=== PATIENT | male | born 1980 | race African-American/Black ===

== ENCOUNTER 2018-03-21 11:08 | Emergency (ER) | payer MEDICAID ==
[2018-03-21] MEDS ORDERED: Proparacaine 0.5% Opth 15 ML BOT ONE (11:28)
[2018-03-21] MEDS ORDERED: Fluorescein Opthalmic Strip ONE (11:28)
== END 2018-03-21 11:47 | disposition home or self-care (01) ==
LOC: ERS 11:08
DX: H10.9 Unspecified conjunctivitis (principal); I10 Essential (primary) hypertension
CPT/HCPCS: 99283

== ENCOUNTER 2018-09-24 10:12 | Inpatient (IN) | payer MEDICAID, OTHER ==
[2018-09-24] MEDS ORDERED: Heparin 1,000 UNITS/ML VIAL ONE (11:11)
[2018-09-24 11:12] LABS: #Lymphocytes 0.1 thou/uL (1.20-3.40); #Monocytes 0.1 thou/uL (0.11-0.59); #Neutrophils 2.8 thou/uL (1.40-6.50); %Eosinophils 1.1 % (0.0-10.0); %Lymphocytes 4.6 % (21.0-51.0); %Monocytes 4.1 % (0.0-10.0); %Neutrophils 90.3 % (42.0-75.0); Hemoglobin 11.2 g/dL (14.0-18.0); MDiff Complete? YES; Mean Corpuscular HGB CONC 35.6 g/dL (32.0-36.0); Mean Corpuscular Hemoglobin 34.8 pg (27.0-31.0); Mean Corpuscular Volume 97.7 fL (78.0-98.0); Mean Platelet Volume 9.1 fL (7.4-10.4); Platelet Count 105 thou/uL (130-400); Platelet Morphology Comment Appears Decreased; Polychromasia SLIGHT = 2-3 cells (100X) (0-2/hpf); RBC Distribution Width 14.1 % (11.5-14.5); Red Blood Cell (RBC) Count 3.23 mill/uL (4.70-6.10); White Blood Cell (WBC) Count 3.1 thou/uL (4.8-10.8)
[2018-09-24 11:27] LABS: ALT (SGPT) 22 U/L (8-55); AST (SGOT) 21 U/L (5-34); Albumin 4.2 g/dL (3.5-5.0); Alkaline Phosphatase 107 U/L (40-150); Anion Gap 30 mmol/L (10-20); Bilirubin, Total 0.5 mg/dL (0.2-1.2); Calc. Creatinine Clearance 0 mL/min (70-130); Calcium 7.1 mg/dL (7.8-10.44); Carbon Dioxide 17 mmol/L (22-29); Chloride 95 mmol/L (98-107); Estimated GFR-MDRD 3; Globulin 4.3 g/dL (2.4-3.5); Glucose 88 mg/dL (70-105); Protein, Total 8.5 g/dL (6.0-8.3); Sodium 135 mmol/L (136-145)
--- NOTE | 2018-09-24 11:35 | RAD ---
EXAM: XR Chest 1 View Portable PROVIDED CLINICAL HISTORY: Patient missed hemodialysis. Diabetes mellitus. COMPARISON: 07/30/2012 FINDINGS: The tunneled right internal jugular vein hemodialysis catheter has been removed. A vascular stent ove rlies the left subclavian and axillary vessels. Cardiac silhouette is magnified by projection. The pu lmonary vasculature is within normal limits. A remote fracture is seen involving the anterior left si xth rib. Vascular calcifications are seen in the thoracic aorta. Surgical clips are seen in the right axillary region with calcifications also seen in the right axillary region probably due to vascular type calcifications. IMPRESSION: No acute cardiopulmonary process.
[2018-09-24 11:39] LABS: BUN (Urea Nitrogen) 116 mg/dL (8.9-20.6)
[2018-09-24] MEDS ORDERED: Heparin 10,000 UNITS/ 10 ML VIAL ONE (12:00)
[2018-09-24] MEDS ORDERED: Ondansetron PF 4 MG/2 ML Vial IVP PRN (15:28)
[2018-09-24] MEDS ORDERED: Ondansetron ODT 4 MG TAB SL PRN (15:28)
[2018-09-24] MEDS ORDERED: Acetaminophen 325 MG TAB PO PRN (15:28)
[2018-09-24 16:35] LABS: #Lymphocytes 0.1 thou/uL (1.20-3.40); #Monocytes 0.1 thou/uL (0.11-0.59); #Neutrophils 2.1 thou/uL (1.40-6.50); %Eosinophils 1.8 % (0.0-10.0); %Lymphocytes 5.2 % (21.0-51.0); Hemoglobin 9.4 g/dL (14.0-18.0); Mean Corpuscular HGB CONC 35.5 g/dL (32.0-36.0); Mean Corpuscular Hemoglobin 34.2 pg (27.0-31.0); Mean Corpuscular Volume 96.1 fL (78.0-98.0); Platelet Count 104 thou/uL (130-400); Red Blood Cell (RBC) Count 2.74 mill/uL (4.70-6.10); White Blood Cell (WBC) Count 2.4 thou/uL (4.8-10.8)
--- NOTE | 2018-09-24 16:38 | CON ---
DATE OF CONSULTATION: HISTORY OF PRESENT ILLNESS: Mr. Adamson is a 38-year-old black male with known history of ESRD and admitted due to a nonfunctional AV fistula. Attempt to open this at [facility] was not successful. He was sent to the ER for further evaluation. He was noted to be hyperkalemic with a potassium of 7. Surgical consult with Dr. Rees was done and a temporary femoral dialysis catheter was placed. He is currently undergoing emergent hemodialysis. I am at the bedside supervising his dialysis. REVIEW OF SYSTEMS: No fever or chills. No diplopia. No abdominal pain. No gross hematuria. No dysuria. No urinary frequency. No headache. No syncopal episode. No shortness of breath. No chest pain. No hallucination. No hematochezia. PAST MEDICAL HISTORY: 1. ESRD from hypertensive nephropathy. 2. Longstanding hypertension, status post acute respiratory failure, status post pneumothorax - iatrogenic, status post bleeding AV fistula. PAST SURGICAL HISTORY: Status post intubation, status post AV fistula placement, status post revision of AV fistula, and status post cuffed dialysis catheter placement. SOCIAL HISTORY: The patient lives with his mother. Lives in [place]. Retired [employer]. Education, high school. Status post blood transfusion. Status post incarceration. No IV drug use. Active lifestyle. FAMILY HISTORY: Positive family history of ESRD. ALLERGIES: NONE. TRAUMA: None. IMMUNIZATIONS: Up-to-date. HOSPITALIZATIONS: Please see past medical history. PHYSICAL EXAMINATION: VITAL SIGNS: Blood pressure is noted at 177/79, heart rate 72, respiratory rate 17, and O2 sat 97%. GENERAL: Noted to be awake, alert, comfortable, not in distress. SKIN: Adequate turgor. HEENT: He has a pinkish conjunctivae. Anicteric sclerae. NECK: No neck mass. No carotid bruits. No JVD. CHEST: No deformities. LUNGS: Clear breath sounds. No wheezing. No crackles. HEART: Normal sinus rhythm. No murmurs. No gallops. No rubs. ABDOMEN: Globular, soft, and nontender. No masses. EXTREMITIES: No edema. No deformities. NEUROLOGICAL: Awake and oriented to 3 spheres. Moving all extremities. No tremors. No asterixis. No ataxia. LABORATORY DATA: Laboratories of September 24, 2018: White count 3.1, hemoglobin 11.2. Sodium 135, potassium 7, chloride 95, carbon dioxide 17, BUN 116, creatinine 23.29, calcium 7.1, AST 21, ALT 22, and albumin 4.2. ASSESSMENT AND PLAN: 1. Hyperkalemia, emergent hemodialysis. He will use a 2.0 potassium bath. We will dialyze this patient for a total of 4 hours. 2. End-stage renal disease, stable. We will continue current hemodialysis regimen on Saturday, Saturday, and Saturday. Currently, Surgery has been consulted for possible revision of his arteriovenous fistula. He may eventually need some cuffed hemodialysis catheter placement. 3. Hypertension. Continue current BP medications. His medications currently include hydralazine 100 mg tab t.i.d., clonidine patch TTS/2 weekly, and losartan 25 mg tab once a day. Agree with current management. We will recheck basic metabolic panel and CBC in a.m. Job ID: [id number]
[2018-09-24 16:51] LABS: Anion Gap 23 mmol/L (10-20); BUN (Urea Nitrogen) 100 mg/dL (8.9-20.6); Calc. Creatinine Clearance 0 mL/min (70-130); Calcium 7.5 mg/dL (7.8-10.44); Carbon Dioxide 21 mmol/L (22-29); Chloride 97 mmol/L (98-107); Estimated GFR-MDRD 4; Glucose 93 mg/dL (70-105); Potassium 5.5 mmol/L (3.5-5.1); Sodium 135 mmol/L (136-145)
--- NOTE | 2018-09-24 18:00 | HP ---
CHIEF COMPLAINT: Missed dialysis due to dialysis fistula malfunction. HISTORY OF PRESENT ILLNESS: Mr. Adamson is a pleasant 38-year-old man with a history of end-stage renal disease, on hemodialysis and history of diabetes mellitus, who presented to the ER yesterday after attempting to undergo dialysis due to malfunction of his dialysis fistula. His last dialysis was on Saturday last week. He was seen by Dr. Bentley, who was unable to unblock his fistula in the office yesterday and therefore advised him to come to the ED. The patient denies having any chest pain, palpitations, or shortness of breath. No lower extremity edema. Denies any abdominal pain or cramping. Has not had any nausea or vomiting. No headaches. He is currently undergoing dialysis at this moment. States he feels well and is resting comfortably without any complaints of pain. REVIEW OF SYSTEMS: Denies having any fevers, chills, or sweats. All other review of systems apart from those mentioned above in HPI are negative. PAST MEDICAL HISTORY: 1. Hypertension. 2. Diabetes mellitus. 3. End-stage renal disease, on dialysis Saturday, Saturday, Saturday. 4. Previous respiratory failure, status post pneumothorax, iatrogenic. 5. Previous issues with bleeding AV fistula. PAST SURGICAL HISTORY: 1. AV fistula placement. 2. Status post revision of AV fistula. 3. Status post cuffed dialysis catheter placement. SOCIAL HISTORY: He reports smoking a quarter of a pack per day since age 36. Denies any alcohol use or illicit drug use. He lives at home with his mother and aunt. ALLERGIES: NO KNOWN DRUG ALLERGIES. CURRENT MEDICATIONS: 1. Hydralazine. 2. Clonidine. 3. Losartan. PHYSICAL EXAMINATION: GENERAL: The patient appears well developed, well nourished, is in no acute distress. VITAL SIGNS: Temperature 99.4, pulse 64, blood pressure 178/105, respirations 17, O2 saturation 100% on room air. HEENT: Normocephalic, atraumatic. Pupils are equal, round, and reactive to light. Sclerae are without icterus. Oropharynx is clear. NECK: Supple without lymphadenopathy. LUNGS: Clear to auscultation bilaterally without wheezes, rales, or rhonchi. CARDIAC: Regular rate and rhythm without audible murmurs, rubs, or gallops. ABDOMEN: Soft, nontender, nondistended. Normoactive bowel sounds present. EXTREMITIES: Fistula to left upper arm, currently undergoing dialysis. No lower leg edema. NEUROLOGIC: Alert and oriented x3. No neuro deficits. SKIN: Without rash or jaundice. LABORATORY DATA: White blood count 2.4, hemoglobin 9.4, hematocrit 26.4, platelets 104. Sodium 135, potassium 5.5, chloride 97, carbon dioxide 21, anion gap 23, BUN 100, creatinine 6.21, GFR 4, glucose 93, calcium 7.5. LFTs unremarkable. IMAGING DATA: Chest x-ray on 09/24/2018, no acute cardiopulmonary process. IMPRESSION AND PLAN: Mr. Adamson is a pleasant 38-year-old man, being admitted for management of the following. 1. Arteriovenous fistula malfunction. The patient seen by Dr. Pandya, who has organized emergent dialysis for total of 4 hours. Following that, plans are to continue his normal regimen of Saturday, Saturday, and Saturday dialysis. Surgery has been consulted for revision of his arteriovenous fistula. 2. Hyperkalemia. With his dialysis, the patient has undergone a 2.0 potassium bath. We will continue to monitor. At this time, his potassium has improved from 7 to 5.5. 3. Hypertension. Resume home medications. Continue to monitor blood pressure. 4. Gastrointestinal prophylaxis. 5. Venous thromboembolism prophylaxis. 6. Full code status. The patient's case was discussed with Dr. Munguia, who agrees upon care as described above. Job ID: [id number]
[2018-09-24 21:12] VITALS: BMI 29.5
[2018-09-24] MEDS ORDERED: hydrALAZINE 25 MG TAB PO SCH (22:45)
[2018-09-24] MEDS ORDERED: Losartan 25 MG TAB PO SCH (22:45)
[2018-09-24] MEDS ORDERED: cloNIDine 0.2 MG TAB PO SCH (22:45)
[2018-09-24] MEDS ORDERED: HYDROcodone/Acetaminophen 10/325 mg Tablet PO PRN (23:01)
[2018-09-24] MEDS ORDERED: HYDROcodone/Acetaminophen 5/325 mg Tablet PO PRN (23:01)
--- NOTE | 2018-09-25 03:51 | CON ---
DATE OF CONSULTATION: REASON FOR CONSULTATION: Need for dialysis access. HISTORY OF PRESENT ILLNESS: Mr. Adamson is a 38-year-old man, on dialysis for the past 8 years or so for end-stage renal failure, felt primarily to be due to hypertension. His mother also has hypertension and end-stage renal failure. They are both on dialysis. He underwent dialysis normally last Saturday, but this week was unable to use his fistula. He was sent to Dr. Bentley's intervention clinic and an attempt was made to reopen the fistula, but this was not successful. The patient was advised to come to the emergency room. He denies any shortness of breath, chest pain, nausea, vomiting, dizziness, abdominal pain, or palpitations. PAST MEDICAL HISTORY: Hypertension. End-stage renal failure, on dialysis Saturday, Saturday, and Saturday. PAST SURGICAL HISTORY: Bilateral upper arm AV fistula placement, placement and removal of tunneled cuffed dialysis catheters, and revision of fistulous. SOCIAL HISTORY: The patient smokes about a quarter pack a day. Denies alcohol or drug use. PHYSICAL EXAMINATION: GENERAL: Reveals a pleasant gentleman, in no acute distress. He is not flushed or toxic in appearance. He is not jaundiced or icteric HEENT: Unremarkable. NECK: Supple without lymphadenopathy or thyroid nodules. HEART: Regular in its rate and rhythm without murmurs, rubs, or gallops. LUNGS: Clear to auscultation bilaterally. ABDOMEN: Soft, nontender, and nondistended. He has normal femoral pulses. EXTREMITIES: Warm and well perfused with minimal edema. He has a thrombosed right upper arm access and a thrombosed left upper arm cephalic fistula. There is no thrill or bruit in either arm. NEURO: No focal deficits. PSYCHIATRIC: Alert, oriented, and appropriate. LABORATORY DATA: White count is normal, hematocrit 31, platelets 105. Electrolytes; potassium was elevated at 7, BUN and creatinine are 116 and 23.29, bicarb is 17. LFTs are unremarkable. ASSESSMENT: End-stage renal failure with lack of access. He appears to have exhausted most of his kalispel veins in his arms, so I will order vein mapping. Due to his elevated potassium, emergency dialysis is necessary, so a femoral catheter was placed at the bedside. We will try to switch this out for a tunneled catheter tomorrow. I am going to ask our interventional radiologist to see if they can declot his fistula. If not, we will proceed with creation of new access next week. Job ID: [id number]
[2018-09-25 05:49] LABS: #Lymphocytes 0.1 thou/uL (1.20-3.40); #Monocytes 0.2 thou/uL (0.11-0.59); #Neutrophils 2.3 thou/uL (1.40-6.50); %Basophils 0.5 % (0.0-1.0); %Eosinophils 1.8 % (0.0-10.0); %Lymphocytes 3.9 % (21.0-51.0); %Monocytes 8.4 % (0.0-10.0); %Neutrophils 85.5 % (42.0-75.0); Hemoglobin 10.1 g/dL (14.0-18.0); Mean Corpuscular Hemoglobin 34.1 pg (27.0-31.0); Mean Corpuscular Volume 97.5 fL (78.0-98.0); Mean Platelet Volume 9.6 fL (7.4-10.4); Platelet Count 73 thou/uL (130-400); RBC Distribution Width 13.9 % (11.5-14.5); Red Blood Cell (RBC) Count 2.95 mill/uL (4.70-6.10); White Blood Cell (WBC) Count 2.7 thou/uL (4.8-10.8)
[2018-09-25 06:07] LABS: Anion Gap 20 mmol/L (10-20); BUN (Urea Nitrogen) 66 mg/dL (8.9-20.6); Calc. Creatinine Clearance 8 mL/min (70-130); Calcium 7.8 mg/dL (7.8-10.44); Carbon Dioxide 24 mmol/L (22-29); Chloride 97 mmol/L (98-107); Estimated GFR-MDRD 4; Glucose 108 mg/dL (70-105); Sodium 136 mmol/L (136-145)
[2018-09-25] MEDS ORDERED: Activase 2 MG VIAL CATH SCH (08:15)
[2018-09-25] MEDS: cloNIDine 0.2 MG TAB PO SCH ×2 (08:49→16:16)
[2018-09-25] MEDS: hydrALAZINE 25 MG TAB PO SCH ×2 (08:50→16:16)
--- NOTE | 2018-09-25 10:13 | PRG ---
DATE OF SERVICE: 09/25/2018 SUBJECTIVE: Mr. Adamson is a 38-year-old black male with ESRD, was admitted for nonfunctional AV fistula. He was noted to be severely hyperkalemic yesterday; for that reason, a temporary femoral dialysis catheter was placed, and the patient underwent hemodialysis. Surgery has been evaluating this patient. The plan is to place a cuffed hemodialysis catheter today. No other complaints today. The patient denies any chest pain or shortness of breath. OBJECTIVE: VITAL SIGNS: Blood pressure 137/84, heart rate 63, respiratory rate 18, temperature 98.1, and pulse ox 97%. GENERAL: Noted to be awake, alert, comfortable, not in distress. SKIN: Adequate turgor. HEENT: Pinkish conjunctivae. Anicteric sclerae. NECK: No neck mass. No carotid bruits. No JVD. CHEST: No deformities. LUNGS: Clear breath sounds. No wheezing. No crackles. HEART: Normal sinus rhythm. No murmur. No gallops or rubs. ABDOMEN: Globular, soft, nontender. No masses. EXTREMITIES: No edema. No deformities. MEDICATIONS: Of September 25, 2018, were reviewed. LABORATORY DATA: Of September 25, 2018; white count 2.7 and hemoglobin 10.1. Sodium 136, potassium 5, chloride 97, carbon dioxide 24, BUN 66, creatinine 15.86, glucose 108, and calcium 7.8. ASSESSMENT AND PLAN: 1. End-stage renal disease. Continue current hemodialysis regimen on Saturday, Saturday, and Saturday. No indication for an emergent hemodialysis today. 2. Hyperkalemia, much improved with dialysis. 3. Hypertension, adequate control. 4. Hyperphosphatemia - the patient with history of elevated phosphorus. Restart Renvela 800 mg three tablets t.i.d. with meals. 5. Recheck basic metabolic panel and CBC in a.m. Job ID: [id number]
[2018-09-25] MEDS ORDERED: Bupivacaine/Epinephrine 0.25% 30 ML VIAL ONE (11:37)
[2018-09-25] MEDS ORDERED: Sodium Chloride 0.9% 20 ML ONE (11:37)
[2018-09-25] MEDS ORDERED: Lidocaine 2% PF 5 ML VIAL ONE (11:37)
[2018-09-25] MEDS ORDERED: Heparin 10,000 UNITS/1 ML VIAL ONE (11:37)
[2018-09-25] MEDS ORDERED: PROPOFOL 40 ML ONE (12:27)
--- NOTE | 2018-09-25 13:30 | RAD ---
Frontal radiograph chest: 09/25/2018 COMPARISON: 09/24/2018 HISTORY: Hemodialysis catheter placement FINDINGS: New hemodialysis catheter present, inserted via a left-sided approach, distal tip overlying the region of the SVC. There is prominence of the cardiac silhouette. Postoperative clips overlie the imaged right upper extremity medially. Stent material is seen in the subclavian region on the lef t. No pneumothorax. IMPRESSION: Left-sided hemodialysis catheter as above.
[2018-09-25] MEDS: Sevelamer Carbonate 800 MG TAB PO SCH ×2 (14:20→18:21)
[2018-09-25 14:25] VITALS: TEMP 97.8
[2018-09-25] MEDS ORDERED: PROPOFOL 200 MG/20 ML VIAL ONE (15:25)
[2018-09-25] MEDS ORDERED: Lidocaine 1% PF 5 ML VIAL ONE (15:25)
--- NOTE | 2018-09-25 16:15 | ULT ---
Exam: Vein mapping for dialysis access HISTORY: End-stage renal disease. TECHNIQUE: Multiplanar grayscale and color Doppler images were obtained in a bilateral upper extremit y venous ultrasound. Spectral analysis of the Doppler waveforms of the vessels were performed. FINDINGS: The bilateral internal jugular veins and subclavian veins are patent without evidence of th rombus. Right brachial artery 5.6 mm Right radial artery 2.8 mm Right ulnar artery 2.2 mm Left brachial artery 5.2 mm Left radial artery 2.4 mm Left ulnar artery 2.2 mm RIGHT CEPHALIC VEIN in millimeters Occluded-- Shoulder Occluded-- Upper arm Occluded-- Mid upper arm Occluded-- Just proximal to the elbow 1.5 -- Just distal to the elbow 0.8 -- Forearm 2.2 -- Wrist RIGHT BASILIC VEIN in millimeters Nonocclusive thrombus-- Shoulder Nonocclusive thrombus-- Upper arm 3.9 -- Mid upper arm 4.5 -- Just proximal to the elbow 1.2 -- Just distal to the elbow 0.7 -- Forearm 1.3 -- Wrist LEFT CEPHALIC VEIN in millimeters Occluded-- Shoulder Occluded-- Upper arm Occluded-- Mid upper arm Occluded-- Just proximal to the elbow Occluded-- Just distal to the elbow Nonocclusive thrombus-- Forearm Nonocclusive thrombus-- Wrist LEFT BASILIC VEIN in millimeters 4.9 -- Shoulder 5.1 -- Upper arm 4.4 -- Mid upper arm 5.5 -- Just proximal to the elbow 3.4 -- Just distal to the elbow 2.5 -- Forearm 2.2 -- Wrist IMPRESSION: Vein mapping for dialysis access as above
[2018-09-25 16:16] VITALS: BP 140/80
[2018-09-25] MEDS ORDERED: Losartan 25 MG TAB PO SCH (21:00)
--- NOTE | 2018-09-26 05:25 | DIS ---
DATE OF ADMISSION: 09/24/2018 DATE OF DISCHARGE: 09/25/2018 ALLERGIES: NO KNOWN DRUG ALLERGIES. CHIEF COMPLAINT: Malfunctioning AV fistula resulting in a missed dialysis session. FINAL DIAGNOSES: 1. Malfunctioning AV fistula, status post emergent femoral tunneled catheter placed, status post removal, and tunneled dialysis catheter placed in the left subclavian vein. 2. End-stage renal disease secondary to hypertensive nephropathy, on dialysis Saturday, Saturday, and Saturday. 3. Hyperkalemia secondary to missed dialysis sessions, status post emergent dialysis and potassium bath, resolved. 4. Hypertension. PROCEDURES PERFORMED: 1. Tunneled dialysis catheter placement with Dr. Rees. 2. Emergent dialysis. LABORATORY RESULTS: White blood cell count 2.7, hemoglobin 10.1, hematocrit 28.8, platelets 73. Sodium 136, potassium 5.0, chloride 97, BUN 66, creatinine 15.86. IMAGING RESULTS: Chest x-ray post-tunneled dialysis catheter revealed a new hemodialysis catheter present inserted via left-sided approach, distal tip overlying the region of the SVC, prominent cardiac silhouette, stent material is seen in the subclavian region on the left. No pneumothorax. Vein mapping revealed the bilateral internal jugular veins and subclavian veins are patent without evidence of thrombus. CONSULTATIONS: Dr. Rees, Dr. Pandya of Nephrology. VITAL SIGNS: Blood pressure 140/80, pulse is 67, respirations are 16, O2 saturation is 99% on room air. HOSPITAL COURSE: The patient is a pleasant 38-year-old male with past medical history significant for end-stage renal disease and hypertension, who presented to the ER yesterday after failed dialysis attempts secondary to nonfunctioning dialysis fistula. He was seen by Dr. Bentley in outpatient clinic, who attempted to de-thrombose the fistula in the office; however, this was unsuccessful and advised the patient to come to the emergency department. On arrival to the ED, the patient's potassium was notable at 7, and femoral catheter was placed for emergent dialysis along with 2.[address] Pandya. The patient throughout this was asymptomatic, denying chest pain, shortness of breath, palpitations, nausea, or vomiting. His potassium did resolve. Both Dr. Pandya and Dr. Rees were consulted. During his admission, inpatient revision of the AV fistula was deemed to be high risk per IR, and so Dr. Rees did place a left subclavian tunneled dialysis catheter. Dr. Pandya recommended him to restart his Renvela. Vein mapping was also performed and is outlined above. The patient was cleared for discharge by Dr. Pandya and Dr. Rees to undergo his regular dialysis session as an outpatient tomorrow. The patient feels well. He has no pain. He denies any chest pain, shortness of breath, palpitations, dizziness, nausea, or vomiting. His appetite is good. PHYSICAL EXAMINATION: GENERAL: The patient is an male, resting comfortably in bed, sitting up, eating dinner. He is in no distress. HEENT: Atraumatic, normocephalic. Eye movements intact. Mucous membranes moist. NECK: Supple. No lymphadenopathy. No JVD. No carotid bruits. RESPIRATORY: Regular respiratory rate and pattern. Clear to auscultation bilaterally with no rhonchi, wheezes, or crackles noted. GI: Soft and nontender. Normal bowel sounds. PERIPHERAL VASCULAR: No lower extremity pitting edema. MUSCULOSKELETAL: No joint effusions or swelling. NEUROLOGIC: Cranial nerves II through XII grossly intact. The patient is nonfocal. SKIN: Warm and dry. Left sided dialysis catheter in place. No oozing or bleeding noted. No edema. CONDITION AT DISCHARGE: Stable. DISCHARGE MEDICATIONS: 1. Clonidine 0.2 mg tablet one tablet p.o. t.i.d. 2. Hydralazine 100 mg p.o. t.i.d. 3. Losartan 25 mg p.o. at bedtime. 4. Renvela, which is a new prescription per Dr. Pandya, 1600 mg p.o. t.i.d. with meals. DISCHARGE DISPOSITION: Home. PLAN: The patient will proceed with dialysis as scheduled tomorrow. He will follow up with Dr. Rees next Saturday for further recommendations regarding permanent dialysis access. The patient will also follow up with his primary care provider. All questions have been answered to the patient's satisfaction. He has been cleared for discharge by Dr. Rees. Job ID: [id number] [facility]
--- NOTE | 2018-09-27 09:05 | EKG ---
Test Reason : Blood Pressure : / mmHG Vent. Rate : 067 BPM Atrial Rate : 067 BPM P-R Int : 190 ms QRS Dur : 112 ms QT Int : 436 ms P-R-T Axes : 058 015 070 degrees QTc Int : 460 ms Normal sinus rhythm Nonspecific T wave abnormality Prolonged QT Abnormal ECG Confirmed by PAULINE MITCHELL D.O. ([id number]), medical transcription editor HARMAN WOOD ([id number]) on 09/27/2018 9:05:13 AM Referred By: Confirmed By:PAULINE MITCHELL D.O.
--- NOTE | 2018-10-01 09:32 | PDOC.OP ---
Operative Note - Operative Note Operative Note: DATE OF PROCEDURE: 09/25/2018 PROCEDURE: Placement of left internal jugular tunneled hemodialysis catheter. PREOPERATIVE DIAGNOSIS: End-stage renal failure. POSTOPERATIVE DIAGNOSIS: End-stage renal failure. HISTORY: Patient with thrombosed left upper arm cephalic fistula unable to be opened by interventional radiology. He has a femoral catheter in place for emergency dialysis since he presented with severe hyperkalemia. 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 PROCEDURE: After informed consent was obtained and appropriate preoperative antibiotics were administered, the patient was taken to the Operating Room, placed in the supine position and monitored anesthesia care was administered. The neck and chest were prepped and draped in a standard sterile fashion and the patient placed in Trendelenburg position. A sterile ultrasound probe was used to identify the patent compressible right IJ vein which was accessed under direct ultrasound guidance. This had good nonpulsatile venous flow but a wire could not be advanced beyond the level of the clavicle. It was felt that the patient had a stenosis at this level from previous catheters. The left internal jugular was examined with sterile ultrasound and was patent and compressible. This was accessed under direct ultrasound guidance. A wire was threaded through the needle and confirmed by ultrasound to be within the patent compressible vessel with the tip in the vena cava by fluoroscopy. Local anesthesia was infused to the skin and subcutaneous tissues of the left neck and chest. An infraclavicular incision was made and a catheter tunneled from the infraclavicular to the left IJ access site. The left IJ was sequentially dilated over the wire following which a dilator and sheath were placed over the wire and the dilator and wire removed leaving the sheath in place. The catheter was tunneled through the sheath which was then split and removed leaving the catheter in place. This was confirmed by fluoroscopy to be in good position in the superior vena cava with no kinking of the course of the catheter. Both ports easily aspirated dark venous nonpulsatile blood and easily flushed without resistance. Heparin was instilled to the quantity specified on the hub , and the hub was secured to the skin with 3-0 nylon sutures. The skin incision at the neck was closed in two layers with 4-0 Monocryl suture and Dermabond dressings were placed. The skin at the exit site was snugged up around the catheter with 4-0 Monocryl suture and Dermabond was placed there as well. Once the Dermabond was dry, a Biopatch and Tegaderm dressing was placed at the exit site. The patient was taken to Recovery in good condition. Estimated blood loss was minimal. There were no complications. There were no specimens.
== END 2018-09-25 18:21 | disposition home or self-care (01) | DRG 314 ==
LOC: ERS 10:12 → ERHOLD 12:44 → 2NO 19:21
PROVIDERS: ADMIT Internal Medicine; ATTEND Internal Medicine
PROC: 0JH63XZ Insertion of Tunneled Vascular Access Device into Chest Subcutaneous Tissue and Fascia, Percutaneous Approach (ICD-10-PCS; principal; 2018-09-25)
PROC: 02HV33Z Insertion of Infusion Device into Superior Vena Cava, Percutaneous Approach (ICD-10-PCS; 2018-09-25)
PROC: B5181ZA Fluoroscopy of Superior Vena Cava using Low Osmolar Contrast, Guidance (ICD-10-PCS; 2018-09-25)
PROC: 5A1D70Z Performance of Urinary Filtration, Intermittent, Less than 6 Hours Per Day (ICD-10-PCS; 2018-09-25)
DX: T82.898A Other specified complication of vascular prosthetic devices, implants and grafts, initial encounter (principal); N18.6 End stage renal disease; I12.0 Hypertensive chronic kidney disease with stage 5 chronic kidney disease or end stage renal disease; E87.5 Hyperkalemia; Z99.2 Dependence on renal dialysis; E83.39 Other disorders of phosphorus metabolism
CPT/HCPCS: 36415; 71045; 80048; 80053; 85025; 90935; 93005; 93970; C1752; C1769; G0257; G0365; J0690; J1644; J2001; J2704; J2997

== ENCOUNTER 2018-12-02 09:36 | Day surgery (SDC) | payer OTHER ==
[2018-12-01 10:21] VITALS: BMI 29.0
[2018-12-02 10:46] LABS: #Eosinphils 0.1 thou/uL (0.0-0.7); #Lymphocytes 0.6 thou/uL (1.20-3.40); #Monocytes 0.2 thou/uL (0.11-0.59); %Eosinophils 2.9 % (0.0-10.0); %Monocytes 6.3 % (0.0-10.0); %Neutrophils 69.8 % (42.0-75.0); Hemoglobin 12.8 g/dL (14.0-18.0); Mean Corpuscular HGB CONC 34.3 g/dL (32.0-36.0); Mean Corpuscular Hemoglobin 33.4 pg (27.0-31.0); Mean Corpuscular Volume 97.5 fL (78.0-98.0); Mean Platelet Volume 8.7 fL (7.4-10.4); Platelet Count 126 thou/uL (130-400); RBC Distribution Width 13.5 % (11.5-14.5); Red Blood Cell (RBC) Count 3.83 mill/uL (4.70-6.10); White Blood Cell (WBC) Count 2.9 thou/uL (4.8-10.8)
[2018-12-02 11:06] LABS: Anion Gap 23 mmol/L (10-20); BUN (Urea Nitrogen) 57 mg/dL (8.9-20.6); Calc. Creatinine Clearance 9 mL/min (70-130); Calcium 8.7 mg/dL (7.8-10.44); Carbon Dioxide 22 mmol/L (22-29); Chloride 95 mmol/L (98-107); Estimated GFR-MDRD 5; Glucose 87 mg/dL (70-105); Potassium 5.4 mmol/L (3.5-5.1); Sodium 135 mmol/L (136-145)
[2018-12-02] MEDS ORDERED: Heparin 5,000 UNITS/ML VIAL ONE (12:07)
[2018-12-02] MEDS ORDERED: Lidocaine 2% PF 5 ML VIAL ONE (12:07)
[2018-12-02] MEDS ORDERED: Protamine Sulfate 50 MG/5 ML VIAL ONE (12:07)
[2018-12-02] MEDS ORDERED: Ioversol 68 % 50 ML VIAL ONE (12:07)
[2018-12-02] MEDS ORDERED: Bupivacaine/Epinephrine 0.25% 30 ML VIAL ONE (12:07)
[2018-12-02] MEDS ORDERED: Midazolam HCl 2 mg/2 ml Vial ONE (12:13)
[2018-12-02] MEDS ORDERED: Fentanyl 100 MCG/2 ML VIAL ONE (12:13)
[2018-12-02] MEDS ORDERED: Lidocaine 1% PF 5 ML VIAL ONE (14:03)
[2018-12-02] MEDS ORDERED: Heparin 10,000 UNITS/ 10 ML VIAL ONE ×2 (14:03→16:03)
[2018-12-02] MEDS ORDERED: PROPOFOL 200 MG/20 ML VIAL ONE (14:03)
--- NOTE | 2018-12-03 10:17 | OP ---
DATE OF PROCEDURE: 12/02/2018 PROCEDURE PERFORMED: Left brachiocephalic AV fistula. HISTORY: Mr. Adamson is a 38-year-old man with a thrombosed left upper arm AV fistula and very limited access options. He does appear to have a patent basilic vein in the left upper arm, and recommendation was made to proceed with left basilic vein AV fistula with plan for later transposition, versus graft if this is not possible. FINDINGS: 4 mm basilic vein anastomosed to the brachial artery just above the bifurcation PROCEDURE: After informed consent was obtained and appropriate preoperative antibiotics administered, the patient was taken to the operating room and was placed in supine position and general anesthesia was administered. The patient' s arm was prepped and draped in standard sterile fashion. The brachial artery was palpable and was marked on the skin. Basilic vein was not palpable but on ultrasound had a large branch along the ulnar surface of the arm and a smaller branch leading up toward the antecubital fossa. An incision was made over the smaller branch but this was inadequate for fistula. Another incision was made over the larger branch which was dissected free and appeared to be adequate size and quality to support a fistula. This was marked for orientation, ligated distally and divided and spatulated. The vein was interrogated with cardiac dilators and easily accepted up to a 4 mm dilator. The vein was flushed with heparinized saline and clamped. A tunnel was created between the lateral and antecubital incisions and the vein was tunneled to the antecubital incision taking care not to twist the vein. The brachial artery was identified and dissected free and was felt to be of adequate caliber and quality to support a fistula. A segment just above the bifurcation was selected. This was dissected free. Heparin was administered systemically and allowed to circulate for 3 minutes. After the heparin had circulated for 3 minutes, the radial artery was clamped proximally and distally. An anterior arteriotomy was created with an 11 blade and extended with Ibarra scissors. The vein was spatulated and an end- to-side anastomosis was created with excellent technical result. Prior to tying down the anastomosis, the arterial inflow was released flushing the anastomosis. The anastomosis was then secured and hemostasis was verified. Flow was established first through the fistula following which flow was restored through the artery. The patient had a palpable thrill in the basilic vein as well as a good Doppler signal to the level of the axilla. The wound was irrigated and examined for hemostasis was again confirmed to be excellent. The subcutaneous tissues were reapproximated with a running 3-0 Monocryl sutures and the skin was closed with running 4-0 subcuticular Monocryl suture. Dermabond dressings were placed. Prior to leaving the operating room the fistula was again examined by Doppler and a good bruit confirmed. The patient was then taken to recovery in good condition. Estimated blood loss was minimal. There were no complications. There were no specimens. Job ID: [id number] [facility]
== END 2018-12-02 16:35 | disposition home or self-care (01) ==
LOC: SDC 09:36
PROVIDERS: ATTEND Surgery
PROC: 03180ZD Bypass Left Brachial Artery to Upper Arm Vein, Open Approach (ICD-10-PCS; principal; 2018-12-02)
DX: T82.868A Thrombosis due to vascular prosthetic devices, implants and grafts, initial encounter (principal); I12.0 Hypertensive chronic kidney disease with stage 5 chronic kidney disease or end stage renal disease; E11.22 Type 2 diabetes mellitus with diabetic chronic kidney disease; N18.6 End stage renal disease; F17.210 Nicotine dependence, cigarettes, uncomplicated; Z99.2 Dependence on renal dialysis; Z98.890 Other specified postprocedural states
CPT/HCPCS: 80048; 85025; J0690; J1644; J2001; J2250; J2704; J2720; J3010; Q9967

== ENCOUNTER 2019-05-05 09:48 | Day surgery (SDC) | payer OTHER ==
[2019-05-04 09:18] VITALS: BMI 27.3
[2019-05-05] MEDS ORDERED: Ondansetron PF 4 MG/2 ML Vial ONE (09:53)
[2019-05-05] MEDS ORDERED: PROPOFOL 200 MG/20 ML VIAL ONE (09:53)
[2019-05-05] MEDS ORDERED: PHENYLEPHRINE-NS 100 MCG/ML 10 ML SYRINGE ONE (09:53)
[2019-05-05] MEDS ORDERED: diphenhydrAMINE 50 MG/ML VIAL ONE (09:53)
[2019-05-05] MEDS ORDERED: Fentanyl 100 MCG/2 ML VIAL ONE ×3 (11:11→12:14)
[2019-05-05] MEDS ORDERED: Bupivacaine 0.5% 10 ML VIAL ONE (11:11)
[2019-05-05 11:53] LABS: #Eosinphils 0.1 thou/uL (0.0-0.7); #Lymphocytes 0.6 thou/uL (1.20-3.40); #Monocytes 0.3 thou/uL (0.11-0.59); #Neutrophils 2.9 thou/uL (1.40-6.50); %Basophils 0.3 % (0.0-1.0); %Eosinophils 2.7 % (0.0-10.0); %Lymphocytes 15.4 % (21.0-51.0); %Monocytes 6.8 % (0.0-10.0); %Neutrophils 74.9 % (42.0-75.0); Hemoglobin 14.8 g/dL (14.0-18.0); Mean Corpuscular HGB CONC 33.8 g/dL (32.0-36.0); Mean Corpuscular Hemoglobin 33.8 pg (27.0-31.0); Mean Corpuscular Volume 99.9 fL (78.0-98.0); Mean Platelet Volume 9.1 fL (7.4-10.4); Platelet Count 132 thou/uL (130-400); RBC Distribution Width 12.8 % (11.5-14.5); Red Blood Cell (RBC) Count 4.38 mill/uL (4.70-6.10); White Blood Cell (WBC) Count 3.8 thou/uL (4.8-10.8)
[2019-05-05] MEDS ORDERED: Lidocaine 2% PF 5 ML VIAL ONE (11:59)
[2019-05-05] MEDS ORDERED: Ioversol 68 % 50 ML VIAL ONE (11:59)
[2019-05-05] MEDS ORDERED: Protamine Sulfate 50 MG/5 ML VIAL ONE (11:59)
[2019-05-05] MEDS ORDERED: Heparin 5,000 UNITS/ML VIAL ONE (11:59)
[2019-05-05] MEDS ORDERED: Bupivacaine 0.25% HCL 30 ML VIAL ONE (11:59)
[2019-05-05] MEDS ORDERED: Propofol 500 MG/50 ML VIAL ONE (12:01)
[2019-05-05] MEDS ORDERED: Midazolam HCl 2 mg/2 ml Vial ONE (12:01)
[2019-05-05 12:41] LABS: Anion Gap 20 mmol/L (10-20); BUN (Urea Nitrogen) 45 mg/dL (8.9-20.6); Calc. Creatinine Clearance 9 mL/min (70-130); Calcium 9.4 mg/dL (7.8-10.44); Carbon Dioxide 25 mmol/L (22-29); Chloride 95 mmol/L (98-107); Estimated GFR-MDRD 5; Glucose 87 mg/dL (70-105); Sodium 135 mmol/L (136-145)
[2019-05-05] MEDS ORDERED: Heparin 10,000 UNITS/ 10 ML VIAL ONE ×3 (17:51→18:21)
--- NOTE | 2019-05-08 14:08 | PDOC.OP ---
Operative Note - Operative Note Operative Note: DATE OF PROCEDURE: 05/05/2019 PROCEDURE: Left basilic vein transposition fistula. SURGEON: Nicholas Rees M.D. PREOPERATIVE DIAGNOSIS: End-stage renal failure. POSTOPERATIVE DIAGNOSIS: End-stage renal failure. HISTORY: Patient with end-stage renal failure and a left upper arm basilic fistula which requires transposition to be accessible. DESCRIPTION OF PROCEDURE: After informed consent was obtained and appropriate neuromuscular blockade was administered, the patient was taken to the operating room and placed in supine position. The arm was prepped and draped in a standard sterile fashion and adequacy of block was confirmed. The distal basilic vein was dissected out to its anastomosis with the brachial artery. The basilic vein was then dissected free to the level of its confluence with the axillary vein, ligating side branches as they were encountered. A 12 mm tunneler was obtained and brought up from the antecubital to the axillary area. 4000 units of heparin was then administered and allowed to circulate for 3 minutes. The vein was marked for orientation, clamped and divided just above the arterial anastomosis. The basilic vein was compressed at the level of the axilla and heparinized saline was instilled, distending the vein. The vein was checked for leaks and none were seen. The vein was then flushed with heparinized saline and a bulldog clamp placed at the level of the axilla. The 12 mm tip was removed and a 6 mm tip placed and the basilic vein was secured to this. The basilic vein was drawn down through the subcutaneous tunnel being careful not to twist the vein. This was found easily to reach to the proximal basilic vein which was of adequate quality and caliber to support transposition. The proximal basilic vein was spatulated anteriorly to create a wide anastomosis. An end-to-side anastomosis was created with a running 6-0 Prolene suture with excellent technical result. Prior to completing the anastomosis, the inflow was released, flushing the anastomosis. The anastomosis was then completed, all clamps were removed and hemostasis verified. There was an excellent thrill through the basilic fistula which was readily palpable beneath the skin. The inner arm wound was then irrigated and hemostasis obtained with Bovie electrocautery. The subcutaneous tissues were closed in two layers with 3-0 Monocryl suture following which the skin incision was closed with skin sarah. Xeroform and Tegaderm dressings were placed and the arm was wrapped with an Elmer wrap. The patient was taken to the recovery room in good condition. Estimated blood loss was minimal. There were no complications. There were no specimens.
== END 2019-05-05 18:45 | disposition home or self-care (01) ==
LOC: SDC 09:48
PROVIDERS: ATTEND Surgery
PROC: 05SC3ZZ Reposition Left Basilic Vein, Percutaneous Approach (ICD-10-PCS; principal; 2019-05-05)
DX: I12.0 Hypertensive chronic kidney disease with stage 5 chronic kidney disease or end stage renal disease (principal); N18.6 End stage renal disease
CPT/HCPCS: 80048; 85025; J0131; J0690; J1200; J1644; J2001; J2250; J2405; J2704; J2720; J3010; J3490; Q9967; S0020

== ENCOUNTER 2019-06-30 06:57 | Day surgery (SDC) | payer OTHER ==
--- NOTE | 2019-06-30 09:18 | SPC ---
EXAM: [facility] [place] [facility] [place]C/AV S PROVIDED CLINICAL HISTORY: Non maturing left upper extremity arteriovenous dialysis fistula in a patient with end-stage renal di [place]. History of prior clotted left upper extremity dialysis fistula Fluoroscopy: Total time of 3 minutes with total dose of 8366 mGy centimeter squared COMPARISON: None TECHNIQUE: The procedure including the risks and complications were explained to the patient, and informed conse nt was obtained. Patient was placed on the angiography table in the supine position. Limited sonographic evaluation of left upper extremity was performed. Left upper extremity was then meticulou sly prepped and draped in usual sterile fashion. The skin and subcutaneous tissues were infiltrated with buffered 1% lidocaine for local anesthesia at the intended puncture site. Utilizing concurrent real-time ultrasound guidance, the fistula was accessed utilizing micropuncture technique, and a 5 Egyptian introducer sheath was placed directed in t he venous direction. A fistulogram and venogram were performed. Manual compression was applied to the venous outflow, and contrast was injected to reflux the arteriovenous anastomosis. There is evidence of occlusion at the level of the axillary subclavian vein junction. Multiple collat eral vessels are seen about the left shoulder. As result, the introducer sheath was exchanged over a 0.035 inch [employer] guidewire for a 5 Egyptian vascular sheath. A 5 [employer] catheter was umberto tyrone. Multiple attempts at manipulating the catheter through the level of obstruction were unsuccessful. Findings were discussed with Dr. Rees at this time. The procedure was then terminate d. The introducer sheath was removed, and hemostasis was achieved with direct pressure. Dry sterile dres sing was placed. Patient tolerated the procedure well and without immediate complication. Patient was transported to radiology nurses holding for further monitoring prior to discharge. IMPRESSION: 1. 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 Multiple collateral vess els are present suggesting long-standing obstruction. A guidewire and catheter were unable to be manipulated through the level of obstruction. 2. Multifocal areas of severe narrowing involving the arterial inflow.
[2019-06-30] MEDS ORDERED: Iopamidol 300 61% 100 ML VIAL FS ONE (13:48)
== END 2019-06-30 09:00 | disposition home or self-care (01) ==
LOC: SPEC 06:57
PROVIDERS: ATTEND Surgery
PROC: B51W1ZZ Fluoroscopy of Dialysis Shunt/Fistula using Low Osmolar Contrast (ICD-10-PCS; principal; 2019-06-30)
DX: I12.0 Hypertensive chronic kidney disease with stage 5 chronic kidney disease or end stage renal disease (principal); N18.6 End stage renal disease; Z79.899 Other long term (current) drug therapy
CPT/HCPCS: 36901; 76937; Q9967

== ENCOUNTER 2019-07-14 12:51 | Emergency (ER) | payer OTHER ==
[2019-07-14 13:43] LABS: #Eosinphils 0.1 thou/uL (0.0-0.7); #Lymphocytes 0.5 thou/uL (1.20-3.40); #Monocytes 0.2 thou/uL (0.11-0.59); #Neutrophils 4.4 thou/uL (1.40-6.50); %Basophils 0.3 % (0.0-1.0); %Lymphocytes 9.9 % (21.0-51.0); %Monocytes 4.3 % (0.0-10.0); %Neutrophils 84.5 % (42.0-75.0); Hemoglobin 14.9 g/dL (14.0-18.0); Mean Corpuscular HGB CONC 34.3 g/dL (32.0-36.0); Mean Corpuscular Hemoglobin 33.5 pg (27.0-31.0); Mean Corpuscular Volume 97.7 fL (78.0-98.0); Mean Platelet Volume 9.3 fL (7.4-10.4); Platelet Count 137 thou/uL (130-400); RBC Distribution Width 13.8 % (11.5-14.5); Red Blood Cell (RBC) Count 4.46 mill/uL (4.70-6.10); White Blood Cell (WBC) Count 5.2 thou/uL (4.8-10.8)
== END 2019-07-14 15:06 | disposition left against medical advice (07) ==
LOC: ERS 12:51
DX: T82.41XA Breakdown (mechanical) of vascular dialysis catheter, initial encounter (principal); I10 Essential (primary) hypertension; F17.210 Nicotine dependence, cigarettes, uncomplicated; Z99.2 Dependence on renal dialysis
CPT/HCPCS: 36415; 85025; 99284

== ENCOUNTER 2019-07-15 06:54 | Day surgery (SDC) | payer OTHER ==
[2019-07-15] MEDS ORDERED: Heparin 10,000 UNITS/1 ML VIAL ONE (06:58)
[2019-07-15] MEDS ORDERED: Bupivacaine PF 0.5% 30 ML VIAL ONE (06:58)
[2019-07-15] MEDS ORDERED: Lidocaine 1% w/Epinephrine 1:100K 20 ML VIAL ONE (06:58)
[2019-07-15] MEDS ORDERED: Fentanyl 100 MCG/2 ML VIAL ONE (07:25)
[2019-07-15] MEDS ORDERED: Midazolam HCl 2 mg/2 ml Vial ONE (07:25)
--- NOTE | 2019-07-15 09:17 | RAD ---
Chest AP view INDICATION: Hemodialysis change COMPARISON: Prior exam dated September 25, 2018 FINDINGS: Lungs:The lungs are clear Cardiac silhouette:There is stable moderate cardiomegaly Pulmonary vasculature:Normal Pleural spaces:No pleural effusion or pneumothorax is demonstrated. Upper abdomen:No abnormality seen. Osseous structures: No acute osseous abnormality. Additional findings:There is a left IJ dialysis catheter projecting in the region of the SVC. There i s an endograft stent within the left subclavian and left axillary region that is similar to the prior exam. Surgical clips are seen within the soft tissues of the right upper extremity. IMPRESSION: No acute cardiopulmonary abnormality.
[2019-07-15] MEDS ORDERED: Ondansetron PF 4 MG/2 ML Vial ONE (09:22)
--- NOTE | 2019-07-15 10:04 | ULT ---
EXAM: Vein mapping for dialysis access HISTORY: End-stage renal disease. TECHNIQUE: Multiplanar grayscale and color Doppler images were obtained in a right upper extremity ve nous ultrasound. Spectral analysis of the Doppler waveforms of the vessels were performed. FINDINGS: The bilateral internal jugular veins and subclavian veins are patent without evidence of th rombus. There is a previous fistula in the right arm which appears thrombosed. Right brachial artery 7.2 mm Right radial artery 2.1 mm Right ulnar artery 2.3 mm RIGHT CEPHALIC VEIN in millimeters 1.9 -- Shoulder 2.7 -- Upper arm Not visualized -- Mid upper arm Not visualized-- Just proximal to the elbow 1.4 -- Just distal to the elbow Not visualized -- Forearm Not visualized -- Wrist RIGHT BASILIC VEIN in millimeters Not visualized -- Shoulder Not visualized -- Upper arm Not visualized -- Mid upper arm Not visualized -- Just proximal to the elbow Not visualized -- Just distal to the elbow Not visualized -- Forearm Not visualized -- Wrist IMPRESSION: Vein mapping for dialysis access as above
--- NOTE | 2019-07-15 16:11 | PDOC.OP ---
Operative Note - Operative Note Operative Note: PROCEDURE: Replacement of left internal jugular tunneled hemodialysis catheter PREOPERATIVE DIAGNOSIS: Dysfunctional tunneled hemodialysis catheter POSTOPERATIVE DIAGNOSIS: Dysfunctional tunneled hemodialysis catheter SURGEON: Nicholas Rees M.D. HISTORY: Mr. Adamson is a 38-year-old man on chronic dialysis. He had a left basilic transposition fistula but this failed to mature and it was discovered that he had occlusion of the subclavian vein just above the axillary vein likely due to previous stent in his cephalic fistula. He is currently using a tunneled hemodialysis catheter, but states that yesterday he turned over in bed and started to bleed from the catheter and realized that one of the ports had broken. He was brought to the emergency room and the port clamps and bleeding controlled but he requires new catheter for access. He was recommended to also undergo placement of a new fistula but states that he cannot do that at this time due to transportation issues, so we will try to schedule this for later date. PROCEDURE: After informed consent was obtained and appropriate preoperative antibiotics were administered, the patient was taken to the operating room and was placed in the supine position and total IV sedation was administered. The neck and chest were prepped and draped in the standard sterile fashion including the old hemodialysis catheter within the sterile prep. After draping , the external portion of the existing catheter was excluded from the field with a Tegaderm. Local anesthesia was infused to the skin and subcutaneous tissues of the left neck and chest. The previous IJ access site was reopened and the catheter dissected free circumferentially, but left in place as it was currently being used by Anesthesia for IV sedation. An infraclavicular incision was made and a new catheter tunneled up from this site to the left IJ access site. The existing hemodialysis catheter was then clamped and cut. The patient was placed in Trendelenburg and a wire placed through the internal portion of the old catheter following which that portion was removed and discarded. The wire was confirmed by fluoroscopy to be within the superior vena cava. A dilator and sheath were placed over the wire and the wire and dilator removed leaving the sheath in place. The new catheter was tunneled through the sheath which was split and removed leaving the old catheter in place. The hub was sutured to the skin. The course of the catheter was confirmed by fluoroscopy to be smooth with the tip in the superior vena cava. Both ports easily aspirated dark nonpulsatile blood and easily flushed without resistance. Heparin was instilled into both ports to the quantity specified on the hub. This was clamped and capped. The left IJ access site was closed in 2 layers with 4-0 Monocryl suture and Dermabond dressings were applied. The skin at the exit site was snugged up around the catheter with a 4-0 Monocryl suture and Dermabond placed at that site as well. A chlorhexidine impregnated dressing was placed. Attention was then turned to removal of the old catheter. Local anesthesia was infused to the skin and subcutaneous tissues surrounding the old cuff and the cuff was dissected free of the surrounding subcutaneous tissue. The external portion of the old catheter was then removed and a sterile gauze and Tegaderm dressing placed at that site. The patient was taken to recovery in good condition. Estimated blood loss was minimal. There were no complications. There were no specimens.
== END 2019-07-15 09:43 | disposition home or self-care (01) ==
LOC: SDC 06:54
PROVIDERS: ATTEND Surgery
PROC: 0J2SXYZ Change Other Device in Head and Neck Subcutaneous Tissue and Fascia, External Approach (ICD-10-PCS; principal; 2019-07-15)
DX: T82.41XA Breakdown (mechanical) of vascular dialysis catheter, initial encounter (principal); I12.0 Hypertensive chronic kidney disease with stage 5 chronic kidney disease or end stage renal disease; N18.6 End stage renal disease; Z99.2 Dependence on renal dialysis
CPT/HCPCS: 71045; 93970; C1752; C1769; G0365; J0690; J1644; J2250; J2405; J3010; S0020

== ENCOUNTER 2019-07-21 11:07 | Day surgery (SDC) | payer OTHER ==
[2019-07-20 14:26] VITALS: BMI 27.3
[~2019-07-21 11:07] MED LIST: PROPOFOL 200 MG/20 ML VIAL ONE
[2019-07-21] MEDS ORDERED: Acetaminophen 500 MG TAB ONE (12:12)
[2019-07-21 13:18] LABS: #Eosinphils 0.1 thou/uL (0.0-0.7); #Lymphocytes 0.5 thou/uL (1.20-3.40); #Monocytes 0.2 thou/uL (0.11-0.59); #Neutrophils 3.4 thou/uL (1.40-6.50); %Basophils 0.3 % (0.0-1.0); %Eosinophils 3.2 % (0.0-10.0); %Lymphocytes 11.4 % (21.0-51.0); %Monocytes 4.9 % (0.0-10.0); %Neutrophils 80.2 % (42.0-75.0); Hemoglobin 11.5 g/dL (14.0-18.0); Mean Corpuscular Hemoglobin 32.9 pg (27.0-31.0); Mean Corpuscular Volume 96.9 fL (78.0-98.0); Mean Platelet Volume 9.7 fL (7.4-10.4); Platelet Count 112 thou/uL (130-400); RBC Distribution Width 13.3 % (11.5-14.5); Red Blood Cell (RBC) Count 3.48 mill/uL (4.70-6.10); White Blood Cell (WBC) Count 4.2 thou/uL (4.8-10.8)
[2019-07-21] MEDS ORDERED: Sodium Chloride 0.9% 20 ML ONE (13:30)
[2019-07-21] MEDS ORDERED: Heparin 10,000 UNITS/1 ML VIAL ONE (13:30)
[2019-07-21] MEDS ORDERED: Bupivacaine 0.25% HCL 30 ML VIAL ONE (13:30)
[2019-07-21] MEDS ORDERED: Lidocaine 2% w/Epinephrine 1:200K 20 ML VIAL ONE (13:30)
[2019-07-21] MEDS ORDERED: Fentanyl 100 MCG/2 ML VIAL ONE (13:39)
[2019-07-21 13:44] LABS: Anion Gap 31 mmol/L (10-20); Calc. Creatinine Clearance 5 mL/min (70-130); Calcium 7.6 mg/dL (7.8-10.44); Carbon Dioxide 13 mmol/L (22-29); Chloride 101 mmol/L (98-107); Estimated GFR-MDRD 3; Glucose 69 mg/dL (70-105); Sodium 138 mmol/L (136-145)
[2019-07-21 13:54] LABS: Potassium 6.6 mmol/L (3.5-5.1)
[2019-07-21 13:55] LABS: BUN (Urea Nitrogen) 112 mg/dL (8.9-20.6)
[2019-07-21] MEDS ORDERED: Heparin 10,000 UNITS/ 10 ML VIAL ONE (15:22)
--- NOTE | 2019-07-21 15:27 | RAD ---
Chest AP view INDICATION: Mediport placement COMPARISON: July 15, 2019 FINDINGS: Lungs:The lungs are clear Cardiac silhouette:Moderate cardiac megaly is stable Pulmonary vasculature:Normal Pleural spaces:No pleural effusion or pneumothorax is demonstrated. Upper abdomen:No abnormality seen. Osseous structures: No acute osseous abnormality. Additional findings:There is a left IJ dialysis catheter in place. There is endovascular stent seen w ithin the left subclavian and left axillary vein regions. IMPRESSION: Stable cardiomegaly. Left IJ dialysis catheter. No pneumothorax.
--- NOTE | 2019-07-23 15:55 | PDOC.OP ---
Operative Note - Operative Note Operative Note: PROCEDURE: Replacement of tunneled hemodialysis catheter SURGEON: Nicholas Rees M.D. DATE: 07/21/2019 PREOPERATIVE DIAGNOSIS: Nonfunctioning tunneled hemodialysis catheter POSTOPERATIVE DIAGNOSIS: And functioning tunneled hemodialysis catheter HISTORY: Patient with failed fistula who requires new access. He has been unable to free up enough time in his schedule to get that done but does have a tunneled dialysis catheter in place which is being used for dialysis in the meantime. Unfortunately it broke last week and had to be replaced, and the new catheter is not drying well so replacement with a longer catheter has been recommended. The patient understands that he should schedule placement of a new fistula as soon as possible. PROCEDURE IN DETAIL: After informed consent was obtained and appropriate preoperative antibiotics were administered, the patient was taken to the operating room and was placed in the supine position and total IV sedation was administered. The neck and chest were prepped and draped in the standard sterile fashion including the old hemodialysis catheter within the sterile prep. After draping, the external portion of the existing catheter was excluded from the field with a Tegaderm. Local anesthesia was infused to the skin and subcutaneous tissues of the left neck and chest. The previous IJ access site was reopened and the catheter dissected free circumferentially, but left in place as it was currently being used by Anesthesia for IV sedation. An incision was made on the left chest lateral to the old dialysis catheter site but there was copious bleeding due to collaterals at this location and so this incision was closed with suture and a new incision made medial to this. A new slightly longer catheter was tunneled up from this site to the left IJ access site. The existing right IJ hemodialysis catheter was then clamped and cut. The patient was placed in Trendelenburg and a wire placed through the internal portion of the old catheter following which that portion was removed and discarded. The wire was confirmed by fluoroscopy to be within the superior vena cava. The tract was sequentially dilated and the dilator and sheath placed over the wire and the wire and dilator removed leaving the sheath in place. The new catheter was tunneled through the sheath which was split and removed leaving the old catheter in place. The hub was sutured to the skin. The course of the catheter was confirmed by fluoroscopy to be smooth with the tip in the superior vena cava. Both ports easily aspirated dark nonpulsatile blood and easily flushed without resistance. Heparin was instilled into 1 port to the quantity specified on the hub. This was clamped and capped. Saline flush was instilled into the other port which was clamped and a Leur-lock catheter placed. The end of the catheter was then passed off the field to Anesthesia for use for IV sedation. The left IJ access site was closed in 2 layers with 4-0 Monocryl suture and Dermabond dressings were applied. The skin at the exit site was snugged up around the catheter with a 4-0 Monocryl suture and Dermabond placed at that site as well. A Biopatch and Tegaderm dressing was placed. Attention was then turned to removal of the old catheter. Local anesthesia was infused to the skin and subcutaneous tissues surrounding the old cuff and the cuff was dissected free of the surrounding subcutaneous tissue. The external portion of the old catheter was then removed and a sterile gauze and Tegaderm dressing placed at that site. The patient was taken to recovery in good condition. Estimated blood loss was minimal. There were no complications. There were no specimens.
== END 2019-07-21 15:55 | disposition home or self-care (01) ==
LOC: SDC 11:07
PROVIDERS: ATTEND Surgery
PROC: 0JPV3XZ Removal of Tunneled Vascular Access Device from Upper Extremity Subcutaneous Tissue and Fascia, Percutaneous Approach (ICD-10-PCS; principal; 2019-07-21)
PROC: 0JH63XZ Insertion of Tunneled Vascular Access Device into Chest Subcutaneous Tissue and Fascia, Percutaneous Approach (ICD-10-PCS; principal; 2019-07-21)
DX: T82.49XA Other complication of vascular dialysis catheter, initial encounter (principal); I12.0 Hypertensive chronic kidney disease with stage 5 chronic kidney disease or end stage renal disease; N18.6 End stage renal disease; Z79.899 Other long term (current) drug therapy
CPT/HCPCS: 71045; 80048; 85025; C1752; C1769; J0690; J1644; J2704; J3010; S0020

== ENCOUNTER 2019-10-08 05:34 | Day surgery (SDC) | payer OTHER ==
[2019-10-08 06:28] LABS: #Basophils 0.1 thou/uL (0.0-0.2); #Eosinphils 0.1 thou/uL (0.0-0.7); #Lymphocytes 0.2 thou/uL (1.20-3.40); #Monocytes 0.2 thou/uL (0.11-0.59); #Neutrophils 3.4 thou/uL (1.40-6.50); %Basophils 1.3 % (0.0-1.0); %Eosinophils 2.5 % (0.0-10.0); %Lymphocytes 4.7 % (21.0-51.0); %Monocytes 6.1 % (0.0-10.0); %Neutrophils 85.4 % (42.0-75.0); Hemoglobin 11.9 g/dL (14.0-18.0); Mean Corpuscular HGB CONC 33.1 g/dL (32.0-36.0); Mean Corpuscular Hemoglobin 33.1 pg (27.0-31.0); Mean Corpuscular Volume 99.9 fL (78.0-98.0); Platelet Count 85 thou/uL (130-400); RBC Distribution Width 12.8 % (11.5-14.5); Red Blood Cell (RBC) Count 3.61 mill/uL (4.70-6.10)
[2019-10-08 06:45] LABS: Anion Gap 22 mmol/L (10-20); BUN (Urea Nitrogen) 67 mg/dL (8.9-20.6); Calc. Creatinine Clearance 0 mL/min (70-130); Calcium 7.9 mg/dL (7.8-10.44); Carbon Dioxide 20 mmol/L (22-29); Chloride 97 mmol/L (98-107); Estimated GFR-MDRD 4; Glucose 74 mg/dL (70-105); Potassium 4.9 mmol/L (3.5-5.1); Sodium 134 mmol/L (136-145)
[2019-10-08] MEDS ORDERED: Midazolam HCl 2 mg/2 ml Vial ONE (09:35)
[2019-10-08] MEDS ORDERED: Fentanyl 100 MCG/2 ML VIAL ONE (09:35)
[2019-10-08] MEDS ORDERED: PROPOFOL 20 ML ONE (09:40)
[2019-10-08] MEDS ORDERED: Heparin 5,000 UNITS/ML VIAL ONE (09:44)
[2019-10-08] MEDS ORDERED: Lidocaine 1% w/Epinephrine 1:100K 20 ML VIAL ONE (09:44)
[2019-10-08] MEDS ORDERED: Protamine Sulfate 250 MG/25 ML VIAL ONE (09:44)
[2019-10-08] MEDS ORDERED: Heparin 10,000 UNITS/1 ML VIAL ONE (09:44)
[2019-10-08] MEDS ORDERED: Bupivacaine 0.25% HCL 30 ML VIAL ONE (09:44)
[2019-10-08] MEDS ORDERED: Ioversol 68 % 50 ML VIAL ONE (09:45)
[2019-10-08] MEDS ORDERED: Sodium Chloride 0.9% 20 ML ONE (09:45)
--- NOTE | 2019-10-08 10:22 | HP ---
CHIEF COMPLAINT: Loss of hemodialysis access. HISTORY OF PRESENT ILLNESS: Mr. Adamson is a 39-year-old man with long-standing renal failure, on dialysis since 2005. He has had multiple access procedures over the years, but is currently dependent on a left internal jugular tunneled dialysis catheter. He underwent dialysis yesterday and after he was done with his dialysis, the catheter "fell out" of his chest as the nurse was dressing it. He does not have any functioning access and requires replacement of the dialysis catheter. I also recommended trying to establish long-term access, but the patient states that he is unable to do that. His mother has 2 medical appointments this afternoon; one with a specialist and one with orthotics to be fitted with bilateral lower extremity prostheses and these appointments would not be able to be rescheduled for 6 months. The patient has otherwise been in his usual state of health and denies any recent fevers, chills, or other problems. PAST MEDICAL HISTORY: End-stage renal failure and hypertension. PAST SURGICAL HISTORY: Multiple tunneled dialysis catheters, right upper arm cephalic fistula by Dr. Salmeron in 2005 with later transposition of the outflow to the basilic vein by Dr. Rossi and then with aneurysmal rupture and thrombosis repaired by Dr. Rossi, but that access is no longer functioning. He then had a left upper arm cephalic fistula which functioned for some time. This was also placed by Dr. Rossi, however, required multiple interventions to maintain patency and ultimately thrombosed. I performed a left basilic fistula with later transposition, but this never developed. 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 FAMILY HISTORY: Peripheral vascular disease and bilateral lower extremity amputations in his mother. ALLERGIES: NO KNOWN DRUG ALLERGIES. OUTPATIENT MEDICATIONS: Include clonidine. REVIEW OF SYSTEMS: 10-system review of systems is negative except per HPI. PHYSICAL EXAMINATION: GENERAL: Reveals a healthy-appearing man, in no acute distress. He is not flushed or toxic in appearance. He is not jaundiced or icteric. HEENT: Unremarkable. NECK: Supple without lymphadenopathy or thyroid nodules. HEART: Regular in its rate and rhythm without murmurs, rubs, or gallops. LUNGS: Clear to auscultation bilaterally. ABDOMEN: Soft, nontender, and nondistended. 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 He has good brachial pulse. Multiple surgical scars where he has undergone thrombectomy and resection of part of the fistula as well as previous transposition to the axillary area. Left arm is slightly swollen. No other edema in the extremities. NEUROLOGIC: No focal deficits. PSYCHIATRIC: Alert, oriented, and appropriate. LABORATORY DATA: White count is 4, hematocrit 36, platelets 85. BUN and creatinine are 67 and 16.8, potassium is 4.9, bicarb is 20. ASSESSMENT: End-stage renal failure, in need of long-term access with very limited options. I have recommended attempts at a right upper arm AV graft, although with his previous transposition of the cephalic vein to the axillary area, I am not sure that he has adequate outflow which could be accessed in the axilla. The patient is willing to undergo that, but states he cannot have it done today. He has postponed this multiple times due to scheduling and transportation difficulties. He does require urgent placement of a tunneled hemodialysis catheter for ongoing hemodialysis and this will be placed today. He is well aware of the surgical risks, which include, but are not limited to, bleeding, infection, risks of anesthesia, deep vein thrombosis, hemothorax, pneumothorax, need for other procedures. He will receive antibiotics on-call to the OR. Job ID: [id number] [facility]
[2019-10-08] MEDS ORDERED: Lidocaine 1% PF 5 ML VIAL ONE (11:42)
[2019-10-08] MEDS ORDERED: PROPOFOL 200 MG/20 ML VIAL ONE (11:42)
--- NOTE | 2019-10-08 11:44 | PDOC.OP ---
Operative Note - Operative Note Operative Note: DATE OF PROCEDURE: 10/08/2019 PROCEDURE: Attempted placement of right internal jugular tunneled dialysis catheter without success due to suspected stenosis. Placement of right femoral tunneled hemodialysis catheter with ultrasound guidance. SURGEON: Nicholas Rees M.D. PREOPERATIVE DIAGNOSIS: End-stage renal failure. POSTOPERATIVE DIAGNOSIS: End-stage renal failure. HISTORY: Patient with end-stage renal failure on dialysis for many years. His tunneled hemodialysis catheter fell out following dialysis yesterday. 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 I also strongly recommended attempts at right upper arm AV graft today but the patient declined that procedure due to scheduling conflicts. FINDINGS: Thrombus in the left internal jugular vein. Wire unable to be passed beyond the level of the clavicle through the right internal jugular vein, suggesting stenosis at that level. Good flow and flush at the right femoral location. PROCEDURE: After informed consent was obtained and appropriate preoperative antibiotics were administered, the patient was taken to the Operating Room, placed in the supine position and monitored anesthesia care was administered. The neck and chest were prepped and draped in a standard sterile fashion and the patient placed in Trendelenburg position. The patient had previously had a tunneled right internal jugular catheter but the last time this was attempted a wire was unable to be passed down into the chest so the left internal jugular area was examined first. Unfortunately the left internal jugular vein had a noncompressible thrombus in it making it unsuitable for dialysis catheter placement. The right internal jugular vein appeared patent and compressible down to the level of the clavicle so an attempt was made at placement of a catheter at this site. A sterile ultrasound probe was used to identify the patent compressible right IJ vein which was accessed under direct ultrasound guidance. A wire was threaded through the needle but was unable to be advanced below the level of the clavicle, doubling back up into the neck. It was felt the patient likely had a stenosis due to his previous catheter placement. Multiple attempts were made to pass a wire down into the chest but it kept coiling back up into the neck. The needle and wire were removed and pressure held at the site. The patient was then prepped and draped in both groin areas. Both femoral veins were confirmed to be patent and compressible by ultrasound. Local anesthesia was infused over the right femoral vein and the vein was accessed under direct ultrasound guidance with excellent flow of dark venous nonpulsatile blood. A wire easily threaded and the needle was removed leaving the wire in place. Local anesthesia was infused to the skin and subcutaneous tissues of the right upper thigh and a cuffed catheter tunneled from the thigh incision to the groin incision. The right femoral vein was sequentially dilated over the wire following which a dilator and sheath were placed over the wire and the dilator and wire removed leaving the sheath in place. The catheter was tunneled through the sheath which was then split and removed leaving the catheter in place. Both ports easily aspirated dark venous nonpulsatile blood and easily flushed without resistance. Heparin was instilled to the quantity specified on the hub, and the hub was secured to the skin with 3-0 nylon sutures. The skin incision at the groin was closed in two layers with 4-0 Monocryl suture and Dermabond dressings were placed. The skin at the exit site was snugged up around the catheter with 4-0 Monocryl suture and Dermabond was placed there as well. Once the Dermabond was dry, a Biopatch and Tegaderm dressing was placed at the exit site. The patient was taken to Recovery in good condition. Estimated blood loss was minimal. There were no complications. There were no specimens.
--- NOTE | 2019-10-08 12:38 | RAD ---
Chest one view HISTORY: Surgery. Postop. COMPARISON: 07/21/2019. FINDINGS: Cardiac silhouette is magnified and enlarged. Pulmonary vasculature is unremarkable. Mediastinum is midline. No confluent airspace consolidation or evidence of pneumothorax. Tip of a large caliber catheter overlies the inferior vena cava and right atrium. Metallic stent at the left subclavian vessels. Metallic clips over the right axilla. IMPRESSION : Cardiomegaly. Chronic-type findings are stable. Presumed lower extremity large caliber venous catheter tip at the right atrium.
== END 2019-10-08 12:15 | disposition home or self-care (01) ==
LOC: SDC 05:34
PROVIDERS: ATTEND Surgery
PROC: 06HM33Z Insertion of Infusion Device into Right Femoral Vein, Percutaneous Approach (ICD-10-PCS; principal; 2019-10-08)
DX: I12.0 Hypertensive chronic kidney disease with stage 5 chronic kidney disease or end stage renal disease (principal); N18.6 End stage renal disease; I82.C12 Acute embolism and thrombosis of left internal jugular vein; T82.42XA Displacement of vascular dialysis catheter, initial encounter; Z99.2 Dependence on renal dialysis; Z98.890 Other specified postprocedural states
CPT/HCPCS: 36415; 71045; 80048; 85025; C1752; C1769; J0690; J1644; J2001; J2250; J2704; J2720; J3010; Q9967; S0020

== ENCOUNTER 2019-11-03 06:11 | Outpatient (CLI) | payer OTHER ==
[2019-11-03 18:42] LABS: SARS-CoV-2 MS2 Positive; SARS-CoV-2 N Gene Negative; SARS-CoV-2 S Gene Negative; SARS-CoV-2 orf1ab Negative
== END 2019-11-03 06:12 | disposition home or self-care (01) ==
LOC: LABBT 06:11
PROVIDERS: ATTEND Surgery
DX: Z01.812 Encounter for preprocedural laboratory examination (principal); Z11.59 Encounter for screening for other viral diseases; N18.6 End stage renal disease
CPT/HCPCS: 87635; U0003

== ENCOUNTER 2019-11-08 03:01 | Inpatient (IN) | payer OTHER ==
[2019-11-08 03:34] LABS: Hemoglobin 9.9 g/dL (14.0-18.0); Mean Corpuscular HGB CONC 32.7 g/dL (32.0-36.0); Mean Corpuscular Hemoglobin 32.2 pg (27.0-31.0); Mean Corpuscular Volume 98.6 fL (78.0-98.0); Red Blood Cell (RBC) Count 3.07 mill/uL (4.70-6.10); White Blood Cell (WBC) Count 8.6 thou/uL (4.8-10.8)
[2019-11-08 03:49] LABS: #Lymphocytes 0.5 thou/uL (1.20-3.40); #Monocytes 0.4 thou/uL (0.11-0.59); #Neutrophils 7.6 thou/uL (1.40-6.50); %Basophils 0.3 % (0.0-1.0); %Eosinophils 0.6 % (0.0-10.0); %Lymphocytes 5.9 % (21.0-51.0); %Monocytes 4.9 % (0.0-10.0); %Neutrophils 88.4 % (42.0-75.0); Band 3 % (5-11); Eosinophils 2 % (0-10); Lymphocytes 7 % (21-51); MDiff Complete? YES; Mean Platelet Volume 10.2 fL (7.4-10.4); Monocytes 2 % (0-10); Neutrophil 86 % (42-75); Platelet Count 115 thou/uL (130-400); Platelet Morphology Comment Appears Decreased
[2019-11-08 04:00] LABS: ALT (SGPT) 13 U/L (8-55); AST (SGOT) 27 U/L (5-34); Albumin 3.1 g/dL (3.5-5.0); Alkaline Phosphatase 133 U/L (40-110); Anion Gap 24 mmol/L (10-20); BUN (Urea Nitrogen) 48 mg/dL (8.9-20.6); Bilirubin, Total 0.5 mg/dL (0.2-1.2); Calc. Creatinine Clearance 0 mL/min (70-130); Calcium 8.6 mg/dL (7.8-10.44); Carbon Dioxide 24 mmol/L (22-29); Chloride 91 mmol/L (98-107); Estimated GFR-MDRD 5; Globulin 5.1 g/dL (2.4-3.5); Glucose 104 mg/dL (70-105); Potassium 4.3 mmol/L (3.5-5.1); Protein, Total 8.2 g/dL (6.0-8.3); Sodium 135 mmol/L (136-145)
[2019-11-08 04:25] LABS: CKMB 3.4 ng/mL (0-6.6)
[2019-11-08] MEDS ORDERED: Labetalol HCl 100 MG/20 ML VIAL SLOW IVP PRN (04:49)
[2019-11-08 04:52] LABS: INR-International Normal Ratio 1.3; Prothrombin Time 15.9 sec (12.0-14.7)
[2019-11-08] MEDS ORDERED: Heparin 1,000 UNITS/ML VIAL ONE ×2 (05:16→05:48)
[2019-11-08] MEDS ORDERED: Heparin 25,000 units/D5W 500 ML ONE (05:17)
--- NOTE | 2019-11-08 06:31 | HP ---
SOURCE OF THE HISTORY: From the patient, history is reliable. CHIEF COMPLAINT: "I was having chest pain early this morning." HISTORY OF PRESENT ILLNESS: This is a 39-year-old male patient, who had a history of hypertension leading to hypertensive nephrosclerosis and subsequent development of stage 5 chronic kidney disease, for which the patient is on maintenance hemodialysis for the last 14 years. The patient used to have AV graft in the past that has been nonfunctioning, and until recently, the patient was having internal jugular dialysis catheter that has been removed after the last hemodialysis on Saturday because of catheter infection, and the patient is scheduled to have another catheter placement in next 2 days. The patient woke up early this morning at 2 o'clock because of substernal chest pain without any radiation and is not associated with any nausea, vomiting, or diaphoresis. Had minimal shortness of breath. The patient never had similar symptoms in the past. Denies any complaints of fever or cough. Subsequently because of persistence of substernal chest pain, the patient was brought to the emergency department, where the patient had evaluation, and the patient was found to be having right bundle-branch block. Otherwise, no acute ST or T-wave changes on the electrocardiogram, and subsequently, the patient was given aspirin and sublingual nitroglycerin with which the patient's chest pain has been completely resolved, and currently, the patient is chest pain free. No history of recent orthopnea or paroxysmal nocturnal dyspnea or pedal edema. PAST MEDICAL HISTORY: 1. Essential hypertension. 2. Stage 5 chronic kidney disease, on maintenance hemodialysis. 3. Recent dialysis catheter infection. PAST SURGICAL HISTORY: Multiple AV grafts and dialysis catheter placement. ALLERGIES: NONE. MEDICATIONS: Current medications at home: Await home medications to be brought to the hospital. SOCIAL HISTORY: He lives with his family. Ambulates without any assistance. Otherwise, the patient had tobacco abuse for 2 years, which he stopped few days ago. Otherwise, he denies any history of alcohol abuse or recreational drug abuse. FAMILY HISTORY: Significant for hypertension, diabetes mellitus, and amputation of toes in his mother. REVIEW OF SYSTEMS: As mentioned in the history of present illness. Apart from that, 14-point review of systems had been conducted and not contributory. PHYSICAL EXAMINATION: GENERAL: Young male patient, lying on the stretcher comfortably, not appears to be in any cardiopulmonary distress. Mucous membranes are pale and moist. Acyanotic. Anicteric. No finger clubbing, pedal edema, or lymphadenopathy. VITAL SIGNS: Not available at this point of time. HEAD: Atraumatic and normocephalic. ENT: Neck is supple. No jugular venous distention. No thyromegaly or carotid bruits. EYES: Extraocular movements are intact. Pupils are equal and reactive to light bilaterally. Accommodation reflex present. CHEST: Bilaterally symmetrical. Trachea is in midline. Air entry is good bilaterally with clear vesicular breath sounds. CARDIOVASCULAR: Normal intensity of S1 and S2 without S3. Regular rhythm, and the patient has systolic murmur over the entire precardium. ABDOMEN: Soft without any distention. Nontender. No organomegaly. Bowel sounds are normoactive. CLINICAL RESEARCH SCIENTIST: The patient is alert, awake, and oriented to time, place, and person. Cranial nerves 2 through 12 are intact. No focal motor or sensory deficits. EXTREMITIES: No edema or calf asymmetry. LABORATORY DATA: WBC 8.6, hemoglobin 9.9, hematocrit 30.3, platelets 115. Sodium 135, potassium 4.3, chloride 91, bicarb 24, anion gap 24, BUN 48, creatinine 12.6, glucose 104, calcium 8.6, total bilirubin 0.5, AST 27, ALT 13, alkaline phosphatase 133. CK-MB 3.4, troponin 3.2. Total protein 8.2, albumin 3.1, globulin 5.1. Chest x-ray revealed mild pulmonary vascular congestion. 12-lead EKG revealed normal sinus rhythm with right bundle-branch block. Otherwise, no acute ST or T-wave changes. ASSESSMENT: 1. [id number] myocardial infarction. 2. Anemia of chronic disease. 3. Chronic thrombocytopenia. 4. Recent dialysis catheter infection. 5. Essential hypertension. 6. Stage 5 chronic kidney disease. PLAN: 1. The patient has been presented with substernal chest pain, and first troponin is 3.2. Probably, the patient is having [id number] myocardial infarction, but otherwise, we will obtain serial EKGs and cardiac enzymes. 2. Start the patient on aspirin along with full-dose Lovenox and Nitropaste. Continue beta-matthieu. 3. Start statin therapy. 4. 2D echocardiogram and fasting lipid panel. 5. Cardiology consultation has been requested by the ER physician and await Cardiology evaluation during the day. 6. The patient had a recent dialysis catheter infection, for which the patient had hemodialysis on Saturday, and subsequently, catheter has been removed. The patient is scheduled to have dialysis catheter placement on Saturday. Obtain Nephrology evaluation during the day. 7. Monitor serum potassium on a daily basis. Job ID: [id number]
[2019-11-08 06:40] VITALS: BMI 31.3
[2019-11-08] MEDS: Nitroglycerin 2% Ointment 1 INCH/1 GM Packet TOP SCH ×2 (06:58→14:04)
[2019-11-08] MEDS ORDERED: Enoxaparin Sodium 100 MG/ML SYRINGE SC SCH (07:00)
[2019-11-08 07:13] LABS: Troponin I 2.858 ng/mL (< 0.028)
[2019-11-08] MEDS: Metoprolol Tartrate 25 MG TAB PO SCH ×2 (07:51→21:18)
--- NOTE | 2019-11-08 08:47 | RAD ---
PORTABLE CHEST ONE VIEW: HISTORY: Chest pain. COMPARISON: 10/08/2019 FINDINGS: Cardiomegaly. Left-sided axillary and subclavian venous vascular stent. Mild vascular congestion. No confluent pneumonia or overt edema. IMPRESSION: Stable cardiomegaly and vascular congestion. No significant new process. POS: [facility]
[2019-11-08] MEDS ORDERED: Aspirin 325 mg Enteric Coated Tablet PO SCH (09:00)
[2019-11-08] MEDS ORDERED: Iopamidol 370 76% 100 ML VIAL ONE (09:30)
[2019-11-08 10:25] LABS: Troponin I 2.816 ng/mL (< 0.028)
[2019-11-08] MEDS ORDERED: Heparin 10,000 UNITS/ 10 ML VIAL SLOW IVP SCH (13:45)
[2019-11-08] MEDS ORDERED: Heparin 25,000 units/D5W 500 ML IV SCH (13:45)
[2019-11-08] MEDS ORDERED: Midazolam HCl 2 mg/2 ml Vial ONE (17:04)
[2019-11-08] MEDS ORDERED: Fentanyl 100 MCG/2 ML VIAL ONE (17:05)
[2019-11-08] MEDS ORDERED: Sodium Chloride 0.9% 200 ML IV PRN (18:31)
[2019-11-08] MEDS ORDERED: Nitroglycerin 0.4 MG TAB (25 Tab Bottle) SL PRN (18:31)
[2019-11-08] MEDS ORDERED: Acetaminophen/Codeine 30-300mg Tablet PO PRN ×2 (18:31)
[2019-11-08] MEDS ORDERED: Vancomycin 1 GM in Premix Bag 1 BAG IVPB SCH (19:15)
[2019-11-08] MEDS: Atorvastatin Calcium 40 MG TAB PO SCH (21:18)
[2019-11-09] MEDS: Metoprolol Tartrate 25 MG TAB PO SCH ×2 (08:09→20:56)
[2019-11-09] MEDS: Aspirin 81 mg Enteric Coated Tablet PO SCH (08:57)
--- NOTE | 2019-11-09 09:34 | CON ---
DATE OF CONSULTATION: HISTORY OF PRESENT ILLNESS: Mr. Adamson is a 39-year-old black male with ESRD from hypertensive nephropathy. He was admitted for chest pain. Cardiac cath was done, and according to the report, no significant coronary artery disease was noted. Please note, he had a cardiac echo with a normal ejection fraction. We are being consulted for management of his ESRD. Recently, the patient was noted to be bacteremic; for that reason, his dialysis catheter was pulled out. The plan is to place the dialysis catheter tomorrow by Dr. Rees. I did examine the patient and I find there is no indication for any emergent hemodialysis. His last potassium last night yesterday was noted to be within normal. In addition, he is not in volume overload. The patient is very careful with his fluid intake. REVIEW OF SYSTEMS: Currently, no chest pain, no shortness of breath, no nausea, no vomiting, no diarrhea, no constipation. Appetite and energy level are fair. No headache. No diplopia. No fever or chills. No gross hematuria. No melena. No hematemesis. No hematochezia. MEDICATIONS: 1. Ecotrin 81 mg tablet daily. 2. Lipitor 80 mg at bedtime. 3. Normodyne 20 mg IV q.4 p.r.n. 4. Lopressor 25 mg p.o. b.i.d. 5. Status post vancomycin. PAST MEDICAL HISTORY: 1. ESRD from a presumed hypertensive nephropathy, currently on maintenance hemodialysis 3 times a week - Saturday, Saturday, and Saturday. 2. Longstanding hypertension. 3. Status post volume overload, status post acute respiratory failure, status post pneumothorax - iatrogenic, status post bleeding from AV fistula. PAST SURGICAL HISTORY: Status post multiple cuffed hemodialysis catheter placements, status post AV fistula placement, and status post intubation. SOCIAL HISTORY: The patient lives in [place]. 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 Education, high school. Status post blood transfusion. No IV drug abuse. Currently, no smoking, no alcohol. Status post incarceration. Lives with his mother. FAMILY HISTORY: Positive family history of ESRD - mother on dialysis. ALLERGIES: NONE. TRAUMA: None. IMMUNIZATIONS: Up to date. HOSPITALIZATIONS: Please see past medical history. PHYSICAL EXAMINATION: VITAL SIGNS: Blood pressure is noted at 142/72, heart rate 82, respiratory rate 18, temperature 98.2, O2 saturation 100%. GENERAL: Noted to be awake, alert, comfortable, not in distress. SKIN: Adequate turgor. HEENT: He has pinkish conjunctivae. Anicteric sclerae. No neck mass. No carotid bruits. No JVD. CHEST: No deformities. LUNGS: Clear breath sounds. HEART: Normal sinus rhythm. No murmurs. No gallops. No rubs. ABDOMEN: Globular, soft, nontender. No masses. EXTREMITIES: No edema. No deformities. NEUROLOGIC: Awake, oriented to 3 spheres. Moving all extremities. No tremors. No asterixis. IMAGING STUDIES: Chest x-ray of November 08, 2019, increased lung markings, no overt pulmonary edema. ASSESSMENT AND PLAN: 1. End-stage renal disease, stable. No indication for any hemodialysis this morning. The patient is scheduled for placement of a cuffed hemodialysis catheter tomorrow. He will then plan to report for his dialysis tomorrow afternoon after the dialysis catheter is placed. Overall, agree with current management. 2. Chest pain - cardiac cath was essentially normal. Continue supportive care. 3. Hypertension, considering continuing current blood pressure medications. 4. Borderline anemia. The patient receives p.r.n. Epogen at the dialysis unit. Overall, agree with current management. Job ID: [id number]
[2019-11-09] MEDS: Sevelamer Carbonate 800 MG TAB PO SCH ×2 (12:35→17:30)
--- NOTE | 2019-11-09 13:14 | CON ---
DATE OF CONSULTATION: REASON FOR CONSULTATION: Unstable angina. HISTORY OF PRESENT ILLNESS: Mr. Adamson is a very pleasant 39-year-old gentleman who has not been seen and evaluated by Cardiology in the past. He recently presented with acute-onset chest pain. This lasted several hours. He presented to the emergency room with the above. His troponin was positive. He is currently chest pain free. He did have a new right bundle-branch block. PAST MEDICAL HISTORY: Hypertension and end-stage renal disease. PAST SURGICAL HISTORY: AV graft. ALLERGIES: NONE. SOCIAL HISTORY: No current tobacco or alcohol use. HOME MEDICATIONS: 1. Catapres. 2. Renvela. REVIEW OF SYSTEMS: A 10-point review of systems is reviewed as above, otherwise negative. PHYSICAL EXAMINATION: GENERAL: Patient is a pleasant male, who is in no acute distress. The patient appears their stated age. VITAL SIGNS: Blood pressure 110/63, pulse 88, and temperature 99.8. NEUROLOGIC: The patient is alert and oriented x3 with no focal neurologic deficits. HEENT: Sclerae without icterus. Mouth has moist mucous membranes with normal pallor. NECK: No JVD. Carotid upstroke brisk. No bruits bilaterally. LUNGS: Clear to auscultation with unlabored respirations. BACK: No scoliosis or kyphosis. CARDIAC: Regular rate and rhythm with normal S1 and S2. No S3 or S4 noted. No significant rubs, murmurs, thrills, or gallops noted throughout the precordium. PMI is not displaced. There is no parasternal heave. ABDOMEN: Soft, nontender, nondistended. No peritoneal signs present. No hepatosplenomegaly. No abnormal striae. EXTREMITIES: 2+ femoral and 2+ dorsalis pedis pulses. No cyanosis, clubbing, or edema. SKIN: No gross abnormalities. PERTINENT LABS: Hemoglobin 9.9, hematocrit 30.3, and platelet count 115. EKG shows normal sinus rhythm with right bundle-branch block. Peak troponin 3.2, downtrending to 2.8. CK-MB of 3.4. IMPRESSION: 1. Unstable angina. 2. End-stage renal disease. RECOMMENDATIONS: Mr. Adamson' LVEF appeared normal. He does have moderate LVH with moderate aortic insufficiency. At this point, Mr. Adamson states he will have difficulty lying flat. May need to dialyze prior to proceeding with coronary angiography. He also has low-grade fever and low platelets. He is currently chest pain free, on IV heparin. I discussed proceeding with coronary angiography and possible PCI. I discussed the procedure in full detail with Mr. Adamson. Risks included, not limited to the following: , stroke, NE, need for emergency surgery, loss of limb, bleeding, and infection, as well as a reaction to the dye causing kidney failure and needing long-term dialysis. I also discussed the risks of PCI to include all of the above including coronary dissection and perforation in addition to acute stent thrombosis and restenosis. All questions were answered. Given the above, the patient agreed to proceed with above procedure. May defer for now until he defervesces and platelet count improves. Job ID: [id number]
[2019-11-09] MEDS ORDERED: Acetaminophen 500 MG TAB PO PRN (15:24)
--- NOTE | 2019-11-09 15:43 | PDOC.HOSPP ---
- Subjective Encounter Date: 11/09/19 Encounter Time: 15:30 Subjective: f/u for NSTEMI and LHC showing no significant CAD or need for PCI and recommendations for medical mgmt. Pt reports pt adjusting his O2 up to 5L/min but saturations have been normal. - Objective Vital Signs & Weight: Vital Signs (12 hours) Temp Pulse Resp BP Pulse Ox 11/09/19 15:00 100.5 F H 60 18 125/58 L 97 11/09/19 11:01 99.4 F 104 H 18 152/67 H 99 11/09/19 07:11 98.2 F 82 18 142/72 H 100 Weight Weight 201 lb I&O: 11/08/19 11/09/19 11/10/19 06:59 06:59 06:59 Intake Total 1859 Balance 1859 Result Diagrams: 11/08/19 03:23 11/08/19 03:23 Additional Labs: Microbiology 11/08/19 19:36 Venous blood - Right Hand Blood Culture - Preliminary Specimen has been received and culture in progress. No Growth to date. 11/08/19 19:35 Venous blood - Left Arm Blood Culture - Preliminary Specimen has been received and culture in progress. No Growth to date. Laboratory Tests 11/08/19 11/08/19 11/08/19 03:23 06:29 09:39 Troponin I 3.203 H* 2.858 H* 2.816 H* Radiology Reviewed by me: Yes (2D echo - EF 55%, mod MR/TR/AR) EKG Reviewed by me: Yes (Tele - SR) Hospitalist ROS - Medication Medications: Active Medications Generic Name Dose Route Start Last Admin Trade Name Freq PRN Reason Stop Dose Admin Acetaminophen 1,000 mg 11/09/19 15:24 11/09/19 15:29 Tylenol PO 1,000 mg Q6H PRN Administration Fever > 101 Acetaminophen/Codeine Phosphate 1 tab 11/08/19 18:31 11/08/19 19:15 Tylenol #3 PO 1 tab Q4H PRN Administration Mild Pain (1-3) Aspirin 81 mg 11/09/19 09:00 11/09/19 08:57 Ecotrin PO 81 mg DAILY JASIEL Administration Atorvastatin Calcium 80 mg 11/08/19 21:00 11/08/19 21:18 Lipitor PO 80 mg HS JASIEL Administration Metoprolol Tartrate 25 mg 11/08/19 09:00 11/09/19 08:09 Lopressor PO 25 mg BID JASIEL Administration Sevelamer Carbonate 1,600 mg 11/09/19 12:00 11/09/19 12:35 Renvela PO 1,600 mg TID-WM JASIEL Administration - Exam General Appearance: NAD, awake alert Eye: PERRL, anicteric sclera ENT: normocephalic atraumatic, no oropharyngeal lesions Neck: supple, symmetric, no JVD, no thyromegaly Heart: RRR, no gallops, no rubs, normal peripheral pulses Heart - other findings: S1, S2 Gastrointestinal: soft, non-tender, non-distended, normal bowel sounds, no palpable masses Extremities: no cyanosis, no clubbing, no edema Skin: normal turgor, no lesions Neurological: cranial nerve grossly intact, no new deficit Musculoskeletal: normal tone, normal strength, no muscle wasting Psychiatric: normal affect, A&O x 3 Hosp A/P (1) NSTEMI (non-ST elevated myocardial infarction) Code(s): I21.4 - NON-ST ELEVATION (NSTEMI) MYOCARDIAL INFARCTION Status: Acute Plan: Continue medical mgmt, ASA/Lipitor/Metoprolol (2) Fever Code(s): R50.9 - FEVER, UNSPECIFIED Status: Acute Plan: Initial blood cx negative, received single dose of Vancomycin, monitor temperature curve (3) ESRD (end stage renal disease) on dialysis Code(s): N18.6 - END STAGE RENAL DISEASE; Z99.2 - DEPENDENCE ON RENAL DIALYSIS Status: Chronic Plan: HD per Renal service after HD catheter placement in am (4) Anemia in CKD (chronic kidney disease) Code(s): N18.9 - CHRONIC KIDNEY DISEASE, UNSPECIFIED; D63.1 - ANEMIA IN CHRONIC KIDNEY DISEASE Status: Chronic Plan: No evidence of active blood loss, serial monitoring - Plan certified social workers in health care, out of bed/ambulate, DVT proph w/SCDs Stable currently Plan for new HD catheter in am Continue ASA/Lipitor Continue Metoprolol HD per Renal service in 24h AM lab: CMP, CBC
[2019-11-09] MEDS: Atorvastatin Calcium 40 MG TAB PO SCH (20:55)
[2019-11-10 04:58] LABS: ALT (SGPT) 12 U/L (8-55); AST (SGOT) 16 U/L (5-34); Albumin 2.7 g/dL (3.5-5.0); Alkaline Phosphatase 139 U/L (40-110); Anion Gap 27 mmol/L (10-20); BUN (Urea Nitrogen) 78 mg/dL (8.9-20.6); Bilirubin, Total 0.5 mg/dL (0.2-1.2); Calc. Creatinine Clearance 7 mL/min (70-130); Calcium 8.4 mg/dL (7.8-10.44); Carbon Dioxide 15 mmol/L (22-29); Cardiac Risk 6.1 (Less than 4.5); Chloride 90 mmol/L (98-107); Cholesterol 122 mg/dl (< 200 Desired); Estimated GFR-MDRD 4; Globulin 4.6 g/dL (2.4-3.5); Glucose 83 mg/dL (70-105); HDL Cholesterol 20 mg/dL (>60 Neg Risk); LDL Cholesterol, Calculated 73 mg/dL; Potassium 4.4 mmol/L (3.5-5.1); Protein, Total 7.3 g/dL (6.0-8.3); Sodium 128 mmol/L (136-145); Triglycerides 147 mg/dL (Less than 150)
[2019-11-10 05:17] LABS: Band 4 % (5-11); Hemoglobin 9.6 g/dL (14.0-18.0); Lymphocytes 2 % (21-51); MDiff Complete? YES; Mean Corpuscular HGB CONC 31.8 g/dL (32.0-36.0); Mean Corpuscular Hemoglobin 31.3 pg (27.0-31.0); Mean Corpuscular Volume 98.7 fL (78.0-98.0); Mean Platelet Volume 10.2 fL (7.4-10.4); Monocytes 3 % (0-10); Neutrophil 91 % (42-75); Platelet Count 130 thou/uL (130-400); RBC Distribution Width 13.4 % (11.5-14.5); Red Blood Cell (RBC) Count 3.07 mill/uL (4.70-6.10); White Blood Cell (WBC) Count 10.8 thou/uL (4.8-10.8)
[2019-11-10] MEDS ORDERED: Vancomycin 1 GM in Premix Bag 1 BAG IVPB SCH (08:00)
--- NOTE | 2019-11-10 08:13 | PRG ---
DATE OF SERVICE: SUBJECTIVE: Mr. Adamson is a 39-year-old black male with ESRD, who was initially admitted for chest pain. He underwent cardiac cath with no significant coronary artery disease findings. Recommendation is medical management. His access is also nonfunctional. Please note his dialysis catheter pulled out due to a line bacteremia. Catheter will be placed today. We have reconsulted Dr. Rees. The patient voices no complaints. No chest pain or shortness of breath. OBJECTIVE: VITAL SIGNS: Blood pressure is 126/58, heart rate 86, respiratory rate 16, temperature 98.5, and pulse ox 98%. GENERAL: Noted to be awake, alert, comfortable, not in distress. SKIN: Adequate turgor. HEENT: Slightly pale conjunctivae. Anicteric sclerae. No neck mass. No carotid bruits. No JVD. CHEST: No deformities. LUNGS: Clear breath sounds. HEART: Normal sinus rhythm. No murmur. No gallops. No rubs. ABDOMEN: Globular. Soft, nontender. No masses. EXTREMITIES: No edema. No deformities. MEDICATIONS: November 10, 2019 reviewed. LABORATORY DATA: November 10, 2019; white count 10.3, hemoglobin 9.6. Sodium 128, potassium 4.4, chloride 90, carbon dioxide 15, BUN 78, creatinine 17.86, glucose 91, AST 16, ALT 12, alkaline phosphatase 129, albumin 2.7. ASSESSMENT AND PLAN: 1. End-stage renal disease - awaiting tunneled dialysis catheter placement, then we will resume his dialysis for 3-1/2 hours. Fluid removal as tolerated. 2. Line bacteremia - dialysis catheter has been pulled out last week. We will probably re-dose the patient with vancomycin this morning 1 g. 3. Borderline anemia. We will continue to observe. 4. Overall, agree with current management. Job ID: [id number]
[2019-11-10] MEDS: Sevelamer Carbonate 800 MG TAB PO SCH ×3 (08:42→19:02)
[2019-11-10] MEDS: Aspirin 81 mg Enteric Coated Tablet PO SCH (08:44)
[2019-11-10] MEDS: Metoprolol Tartrate 25 MG TAB PO SCH ×2 (08:45→19:02)
[2019-11-10] MEDS ORDERED: PROPOFOL 200 MG/20 ML VIAL ONE (09:58)
[2019-11-10] MEDS ORDERED: Metoclopramide HCl 10 MG/2 ML VIAL ONE (09:58)
[2019-11-10] MEDS ORDERED: PHENYLEPHRINE-NS 100 MCG/ML 10 ML SYRINGE ONE (09:58)
[2019-11-10] MEDS ORDERED: Albuterol Sulfate HFA (OR ONLY) ONE (09:58)
[2019-11-10] MEDS ORDERED: Ondansetron PF 4 MG/2 ML Vial ONE (09:58)
[2019-11-10] MEDS ORDERED: Lidocaine 1% PF 5 ML VIAL ONE (09:58)
[2019-11-10] MEDS ORDERED: Vancomycin 1 GM/200 ML BAG ONE (13:34)
[2019-11-10] MEDS ORDERED: Lidocaine 1% w/Epinephrine 1:100K 20 ML VIAL ONE (14:57)
[2019-11-10] MEDS ORDERED: Sodium Chloride 0.9% 20 ML ONE (14:57)
[2019-11-10] MEDS ORDERED: Bupivacaine 0.25% HCL 30 ML VIAL ONE ×2 (14:57→15:28)
[2019-11-10] MEDS ORDERED: Heparin 10,000 UNITS/1 ML VIAL ONE (14:57)
[2019-11-10] MEDS ORDERED: Fentanyl 100 MCG/2 ML VIAL ONE (15:35)
[2019-11-10] MEDS ORDERED: Midazolam HCl 2 mg/2 ml Vial ONE ×2 (15:35)
[2019-11-10] MEDS ORDERED: Famotidine/PF 20 mg/2ml Vial ONE (15:35)
[2019-11-10] MEDS ORDERED: Promethazine HCl 25 MG/ML VIAL IM PRN (16:36)
[2019-11-10] MEDS ORDERED: Promethazine HCl 25 MG/ML VIAL SLOW IVP PRN (16:36)
[2019-11-10] MEDS ORDERED: Ondansetron HCl/PF 4 MG/2 ML Vial IVP PRN (16:36)
--- NOTE | 2019-11-10 17:35 | RAD ---
Frontal radiograph chest: 11/10/2019 COMPARISON: 11/08/2019 HISTORY: Evaluate chest following an attempted hemodialysis catheter placement FINDINGS: Supine imaging is provided, limiting assessment for pneumothorax. Heart and mediastinal con tours are stable aside from widening of the superior mediastinum. This widening could be technical in nature given supine imaging. However, recommend PA upright imaging for detailed assessment. Mild linear density in the left perihi lar region and left lung base suggests volume loss. Vascular stent material is seen in the left subclavian region. IMPRESSION: Widened mediastinum. Recommend upright imaging.
[2019-11-10] MEDS: Atorvastatin Calcium 40 MG TAB PO SCH (19:02)
[2019-11-10 19:21] VITALS: BP 116/53; TEMP 97
--- NOTE | 2019-11-10 20:18 | PRG ---
DATE OF SERVICE: 11/10/2019 SUBJECTIVE: Mr. Adamson is doing well. No current complaints. He states his chest pain has resolved. He is awaiting dialysis catheter placement. OBJECTIVE: VITAL SIGNS: Blood pressure 131/63, pulse 85, temperature 99.4. LUNGS: Clear to auscultation. HEART: Regular rate and rhythm. ABDOMEN: Soft, nontender, and nondistended. EXTREMITIES: No edema. LABORATORY DATA: Blood cultures negative x2. IMPRESSION: 1. Elevated troponin. 2. End-stage renal disease. 3. Hypertension. RECOMMENDATIONS: 1. Elevated troponin may be related to hypertensive urgency. At this point, there was no significant coronary artery disease on recent angiogram. 2. I would recommend aggressive primary risk factor modification. He does have [id number] aortic insufficiency and can follow as an outpatient. Otherwise, I have no further recommendations. Plan is to follow up in 1 week. Job ID: [id number]
--- NOTE | 2019-11-11 04:34 | DIS ---
DATE OF ADMISSION: 11/08/2019 DATE OF DISCHARGE: 11/10/2019 DISCHARGE DIAGNOSES: 1. Non-ST elevation myocardial infarction with minimal coronary artery disease. 2. Fever, secondarily to recent infected hemodialysis catheter status post removal. 3. End-stage renal disease, on hemodialysis. 4. Anemia and chronic kidney disease. 5. Hypertension. CONSULTATIONS: 1. Dr. Pandya with Nephrology Service. 2. Dr. Ramirez with Cardiology Service. 3. Dr. Rossi with General Surgery Service. PERTINENT LABORATORY AND X-RAY FINDINGS: Sodium ranged between 128 to 135. Creatinine ranged between 12.67 to 17.86. Calcium ranged between 8.4 to 8.6. Troponin I ranged between 2.816 to 3.20. Total cholesterol 122, triglycerides 147, HDL 20, LDL 73. CBC showed a hemoglobin of 9.9, hematocrit 30.3, platelet count 115. Blood cultures x2 dated 11/08/2019, showed no growth at 48 hours. Portable chest x-ray dated 11/08/2019, showed cardiomegaly with vascular prominence. Cardiac catheterization dated 11/08/2019, showed mild coronary artery disease with tortuous vessels. 3+ aortic insufficiency. 2D transthoracic echocardiogram dated 11/08/2019, showed ejection fraction of 55% to 60%. Mild to moderate left atrial enlargement. Moderate mitral aortic and tricuspid regurgitation. HOSPITAL COURSE: The patient was admitted to the telemetry unit after initially presenting with chest pain. The patient underwent serial cardiac biomarkers which were positive and elevated as stated previously consistent with non-ST elevation myocardial infarction. The patient was evaluated by the Cardiology Service, undergoing cardiac catheterization showing minimal coronary artery disease and tortuous vessels. The patient was recommended for medical management to include aspirin 81 mg daily, Lipitor, and metoprolol. The patient was also evaluated by the General Surgery Service, undergoing placement of temporary hemodialysis catheter due to recent infected hemodialysis catheter requiring removal. The patient underwent successful placement of a new hemodialysis catheter and received hemodialysis prior to discharge. Overall, the patient did remain clinically stable during the hospital course. I have examined the patient at the time of discharge and discussed followup instructions. The patient verbalized understanding and agreement, ready for discharge on 11/10/2019. DISCHARGE MEDICATIONS: 1. Enteric-coated aspirin 81 mg p.o. daily. 2. Lipitor 80 mg p.o. at bedtime. 3. Clonidine 0.2 mg p.o. b.i.d. 4. Metoprolol tartrate 25 mg p.o. b.i.d. 5. Renvela 1600 mg t.i.d. with meals. FOLLOWUP: The patient is to follow up with Rossi Pastrana, within 7 days of discharge. The patient will follow up with Dr. Pandya with Nephrology Service for maintenance hemodialysis Saturday, Saturday, and Saturday. CONDITION ON DISCHARGE: Stable. ACTIVITY: Ad-troy. DIET: Heart healthy and renal. CODE STATUS: Full. DISPOSITION: Home on 11/10/2019. TIME SPENT: Total time preparing and coordinating discharge; 34 minutes. Job ID: [id number]
--- NOTE | 2019-11-11 16:04 | PDOC.OP ---
Operative Note - Operative Note Operative Note: PROCEDURE: Tunneled left femoral hemodialysis catheter with ultrasound and fluoroscopic guidance SURGEON: Nicholas Rees M.D. DATE: 11/10/2019 PREOPERATIVE DIAGNOSIS: Renal failure POSTOPERATIVE DIAGNOSIS: Renal failure HISTORY: Patient with renal failure requiring ongoing dialysis. He has had multiple previous accesses in the past which have all thrombosed. He had a right femoral tunneled dialysis catheter which had to be removed because of gram -positive cocci on culture. He has been on antibiotics over the weekend and now needs a new tunneled dialysis catheter. He has defervesced. He also has recently had a non-ST elevation myocardial infarction but his coronary arteries were basically normal on catheterization. He is off his heparin drip and free of chest pain. 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 I explained that I think it is highly unlikely that the stenosis will have resolved but he is adamant that this be attempted so I agreed to try. PROCEDURE: After informed consent was obtained the patient was prepped and draped in standard sterile fashion and placed in supine position. A sterile ultrasound probe was used to identify the right internal jugular vein and this is accessed under direct ultrasound guidance with excellent flow of dark venous nonpulsatile blood. However, under fluoroscopic visualization, a wire is unable to be advanced down beyond the collarbone and instead coils back up into the vein. The needle and wire were removed and pressure held. The left internal jugular vein was examined on ultrasound and was patent in the upper neck but became progressively narrower and then appeared to be occluded in the lower neck so an attempt was not made to access this vein. The patient was then prepped and draped in bilateral groin areas and the right femoral vein identified. This was patent and compressible and was accessed under direct ultrasound guidance, but a wire would not advance beyond about 15 cm. Fluoroscopy was obtained and showed that the wire was coiling back into the femoral vein, suggesting a stenosis or occlusion. The left femoral vein was identified and was patent. The vein was accessed under direct ultrasound guidance and a wire threaded through the needle. The needle was removed leaving the wire in place which was confirmed by ultrasound to be within the patent compressible vein. Additional local anesthesia was infused to the left thigh and a tunneled dialysis catheter brought up from the thigh incision to the groin incision. The tract was sequentially dilated and a peel-away sheath and dilator placed over the wire. The dilator and wire were removed leaving the sheath in place and the catheter was tunneled through the sheath which was then removed. Both ports easily aspirated dark nonpulsatile blood and easily flushed without resistance. Heparin was instilled to the quantity specified on the hub's. The groin incision was closed in layers with absorbable suture and Dermabond placed. The exit site was snugged up around the catheter and Dermabond placed there as well. Once the Dermabond was dry a sterile occlusive chlorhexidine impregnated dressing was placed. There were no immediate complications. Estimated blood loss is minimal. There were no specimens. The inpatient dialysis nurse was alerted that the patient had dialysis access in place. The patient is aware that he has very limited access sites for dialysis and that my recommendation is that he go to a vascular surgeon who has capability to do interventional catheter-based procedures as well for possible HERO procedure.
--- NOTE | 2019-11-13 23:31 | EKG ---
Test Reason : Blood Pressure : / mmHG Vent. Rate : 084 BPM Atrial Rate : 084 BPM P-R Int : 284 ms QRS Dur : 142 ms QT Int : 420 ms P-R-T Axes : 059 061 039 degrees QTc Int : 496 ms Sinus rhythm with 1st degree A-V block Possible Left atrial enlargement Right bundle branch block Abnormal ECG When compared with ECG of 24-SEP-2018 10:35, MT interval has increased Right bundle branch block is now Present Confirmed by Remington COREY ([id number]) on 11/13/2019 11:30:58 PM Referred By: EFRAIN Confirmed By:Remington COREY
== END 2019-11-10 19:15 | disposition home or self-care (01) | DRG 280 ==
LOC: ERS 03:01 → 2NO 04:35
PROVIDERS: ADMIT Hospitalist; ATTEND Hospitalist
PROC: 4A023N7 Measurement of Cardiac Sampling and Pressure, Left Heart, Percutaneous Approach (ICD-10-PCS; principal; 2019-11-08)
PROC: B2111ZZ Fluoroscopy of Multiple Coronary Arteries using Low Osmolar Contrast (ICD-10-PCS; 2019-11-08)
PROC: B2151ZZ Fluoroscopy of Left Heart using Low Osmolar Contrast (ICD-10-PCS; 2019-11-08)
PROC: 02PYX3Z Removal of Infusion Device from Great Vessel, External Approach (ICD-10-PCS; 2019-11-10)
PROC: 02HV33Z Insertion of Infusion Device into Superior Vena Cava, Percutaneous Approach (ICD-10-PCS; 2019-11-10)
PROC: B548ZZA Ultrasonography of Superior Vena Cava, Guidance (ICD-10-PCS; 2019-11-10)
PROC: 0JH63XZ Insertion of Tunneled Vascular Access Device into Chest Subcutaneous Tissue and Fascia, Percutaneous Approach (ICD-10-PCS; 2019-11-10)
DX: I21.4 Non-ST elevation (NSTEMI) myocardial infarction (principal); N18.6 End stage renal disease; T80.211A Bloodstream infection due to central venous catheter, initial encounter; I12.0 Hypertensive chronic kidney disease with stage 5 chronic kidney disease or end stage renal disease; F17.210 Nicotine dependence, cigarettes, uncomplicated; D63.1 Anemia in chronic kidney disease; D69.6 Thrombocytopenia, unspecified; I45.10 Unspecified right bundle-branch block; Y83.8 Other surgical procedures as the cause of abnormal reaction of the patient, or of later complication, without mention of misadventure at the time of the procedure; I16.0 Hypertensive urgency; I25.10 Atherosclerotic heart disease of native coronary artery without angina pectoris; Z99.2 Dependence on renal dialysis; Z79.899 Other long term (current) drug therapy
CPT/HCPCS: 36415; 36416; 71045; 76942; 80053; 80061; 82553; 84484; 85007; 85025; 85027; 85347; 85610; 85730; 87040; 93005; 93010; 93306; 93454; 93567; 93798; 94760; 96374; 96375; 99152; C1752; C1760; C1769; J1644; J2001; J2250; J2405; J2704; J2765; J3010; J3370; Q9967; S0020; S0028

== ENCOUNTER 2019-11-17 06:57 | Emergency (ER) | payer OTHER ==
[2019-11-17 07:45] LABS: #Eosinphils 0.1 thou/uL (0.0-0.7); #Lymphocytes 0.5 thou/uL (1.20-3.40); #Monocytes 0.3 thou/uL (0.11-0.59); %Eosinophils 1.3 % (0.0-10.0); %Lymphocytes 8.2 % (21.0-51.0); %Monocytes 4.9 % (0.0-10.0); %Neutrophils 85.6 % (42.0-75.0); Hemoglobin 8.7 g/dL (14.0-18.0); Mean Corpuscular Hemoglobin 31.3 pg (27.0-31.0); Mean Corpuscular Volume 97.7 fL (78.0-98.0); Platelet Count 192 thou/uL (130-400); RBC Distribution Width 14.2 % (11.5-14.5); Red Blood Cell (RBC) Count 2.78 mill/uL (4.70-6.10); White Blood Cell (WBC) Count 5.8 thou/uL (4.8-10.8)
--- NOTE | 2019-11-17 07:47 | RAD ---
RADIOGRAPH CHEST 1 VIEW: DATE: 11/17/2019 HISTORY: 39-year-old male with dyspnea FINDINGS: There is cardiomegaly. There is no evidence of airspace density, pulmonary edema, or pneumothorax. Th e lateral costophrenic angles are not effaced. Left subclavian vein stent. IMPRESSION: 1) No acute pulmonary findings. 2) cardiomegaly without pulmonary edema.
[2019-11-17 08:07] LABS: ALT (SGPT) Less than 7 U/L (8-55); AST (SGOT) 13 U/L (5-34); Albumin 3.2 g/dL (3.5-5.0); Alkaline Phosphatase 136 U/L (40-110); Anion Gap 25 mmol/L (10-20); BUN (Urea Nitrogen) 52 mg/dL (8.9-20.6); Bilirubin, Total 0.5 mg/dL (0.2-1.2); Calc. Creatinine Clearance 0 mL/min (70-130); Calcium 8.3 mg/dL (7.8-10.44); Carbon Dioxide 21 mmol/L (22-29); Chloride 94 mmol/L (98-107); Estimated GFR-MDRD 5; Globulin 5.4 g/dL (2.4-3.5); Glucose 96 mg/dL (70-105); Potassium 4.6 mmol/L (3.5-5.1); Protein, Total 8.6 g/dL (6.0-8.3); Sodium 135 mmol/L (136-145)
[2019-11-17 10:28] LABS: HBSAg Index 0.17 S/CO (0-0.99); Hep B Surf Ag Non-Reactive S/CO (NonReactive)
--- NOTE | 2019-11-17 13:59 | PRG ---
DATE OF SERVICE: 11/17/2019 SUBJECTIVE: Mr. Adamson is a 39-year-old black male with ESRD and was seen at the ER for shortness of breath. He was felt to be in congestive heart failure. We were consulted for emergent hemodialysis. Please note, the patient did not finish his dialysis yesterday and not enough fluid was removed. He is undergoing hemodialysis. We were able to attempt to remove 2.5 L of fluid with him. He tolerated said treatment. His shortness of breath at the end of the treatment was much improved. OBJECTIVE: VITAL SIGNS: Blood pressure 137/73, heart rate 70. GENERAL: Awake, alert, sitting comfortable, not in distress. SKIN: Adequate turgor. HEENT: He has pinkish conjunctivae. Anicteric sclerae. NECK: No neck mass. No carotid bruits. No JVD. CHEST: No deformities. LUNGS: Clear breath sounds. HEART: Normal sinus rhythm. No murmur. No gallops. No rubs. ABDOMEN: Globular, soft, nontender. No masses. EXTREMITIES: No edema. IMAGING STUDIES: Chest x-ray, cardiomegaly without overt CHF, increased lung markings. LABORATORY STUDIES: On November 17, 2019; white count 5.8, hemoglobin 8.7. Sodium 135, potassium 4.6, chloride 94, carbon dioxide 21, BUN 52, creatinine is 14.84. Albumin 3.2. BNP is 2617. ASSESSMENT AND PLAN: 1. Congestive heart failure-hemodialysis done. 2.5 L of fluid was removed. Breathing became improved. I re-emphasized with the patient to make sure he reports for his regular dialysis tomorrow. He will try to comply with this. I also advised him to finish his regular treatment. 2. Anemia. We will continue weekly Epogen at the outpatient dialysis unit. 3. Congestive heart failure, clinically much improved. Please note, review of his last Kt/V suggests he is adequately dialyzed with the current dialysis regimen. Job ID: [id number]
--- NOTE | 2019-11-21 12:55 | EKG ---
Test Reason : ER Blood Pressure : / mmHG Vent. Rate : 104 BPM Atrial Rate : 104 BPM P-R Int : 166 ms QRS Dur : 146 ms QT Int : 392 ms P-R-T Axes : 007 -28 080 degrees QTc Int : 515 ms Sinus tachycardia Possible Left atrial enlargement Right bundle branch block Abnormal ECG Confirmed by OLGA LIDIA THOMASON ([id number]), international editorial producer HARMAN WOOD ([id number]) on 11/21/2019 12:55:13 PM Referred By: Confirmed By:OLGA LIDIA Daly
== END 2019-11-17 13:40 | disposition home or self-care (01) ==
LOC: ERS 06:57
DX: R06.00 Dyspnea, unspecified (principal); N28.9 Disorder of kidney and ureter, unspecified; I10 Essential (primary) hypertension; F17.210 Nicotine dependence, cigarettes, uncomplicated; Z99.2 Dependence on renal dialysis; Z79.899 Other long term (current) drug therapy
CPT/HCPCS: 36415; 71045; 80053; 83880; 85025; 87340; 90935; 93005; G0257

== ENCOUNTER 2019-11-29 04:54 | Emergency (ER) | payer OTHER ==
[2019-11-29] MEDS ORDERED: HYDROcodone/Acetaminophen 5/325 mg Tablet ONE (05:36)
== END 2019-11-29 07:32 | disposition home or self-care (01) ==
LOC: ERS 04:54
DX: L30.9 Dermatitis, unspecified (principal); I10 Essential (primary) hypertension; Z79.899 Other long term (current) drug therapy
CPT/HCPCS: 99283

== ENCOUNTER 2019-12-07 19:56 | Emergency (ER) | payer OTHER ==
[~2019-12-07 19:56] MED LIST changes: +Atropine Sulfate 1 mg/10 ml Syringe ONE; +Calcium Chloride 1 GM/10 ML Abboject SYRINGE ONE; +EPINEPHrine 1 MG/10 ML Abboject SYRINGE ONE; -PROPOFOL 200 MG/20 ML VIAL ONE; +Sodium Bicarb 50 MEQ/50 ML Abboject 8.4% SYRINGE ONE
[2019-12-07] MEDS ORDERED: Morphine 4 MG/ML VIAL ONE (20:41)
[2019-12-07] MEDS ORDERED: Ondansetron PF 4 MG/2 ML Vial ONE (20:41)
[2019-12-07 21:00] LABS: Hemoglobin 5.9 g/dL (14.0-18.0); Mean Corpuscular HGB CONC 31.5 g/dL (32.0-36.0); Mean Corpuscular Volume 98.5 fL (78.0-98.0); Mean Platelet Volume 7.8 fL (7.4-10.4); Platelet Count 192 thou/uL (130-400); RBC Distribution Width 17.5 % (11.5-14.5); Red Blood Cell (RBC) Count 1.92 mill/uL (4.70-6.10); White Blood Cell (WBC) Count 11.6 thou/uL (4.8-10.8)
[2019-12-07 21:13] LABS: Band 18 % (5-11); Hypochromia SLIGHT = 6-15 cells (100X) (0-5/hpf); Lymphocytes 4 % (21-51); MDiff Complete? YES; Metamyelocyte 1 % (0-0); Monocytes 8 % (0-10); Neutrophil 69 % (42-75); Platelet Morphology Comment Appears Adequate
[2019-12-07 21:15] LABS: ALT (SGPT) 11 U/L (8-55); AST (SGOT) 21 U/L (5-34); Albumin 2.5 g/dL (3.5-5.0); Alkaline Phosphatase 114 U/L (40-110); Anion Gap 29 mmol/L (10-20); BUN (Urea Nitrogen) 73 mg/dL (8.9-20.6); Bilirubin, Total 1.2 mg/dL (0.2-1.2); Calc. Creatinine Clearance 0 mL/min (70-130); Carbon Dioxide 20 mmol/L (22-29); Chloride 91 mmol/L (98-107); Estimated GFR-MDRD 7; Globulin 4.9 g/dL (2.4-3.5); Glucose 91 mg/dL (70-105); Potassium 5.9 mmol/L (3.5-5.1); Protein, Total 7.4 g/dL (6.0-8.3); Sodium 134 mmol/L (136-145)
[2019-12-07 21:36] LABS: Syphilis Antibody Nonreactive (Nonreactive); Syphilis Antibody Index 0.06 S/CO (<1.00 Non-Reactive)
[2019-12-07] MEDS ORDERED: Cefepime 2 GM VIAL ONE (21:44)
[2019-12-08 00:53] LABS: Lactic Acid 9.9 mmol/L (0.5-2.2)
[2019-12-08] MEDS ORDERED: Norepinephrine 8 MG/0.9% NS 250 ML ONE (01:17)
--- NOTE | 2019-12-08 07:51 | RAD ---
PORTABLE CHEST: History: Tachycardia Comparison: 11-17-2019 FINDINGS: Heart size is enlarged. Mediastinal structures appear unremarkable. The lungs are clear of any infilt rates. There are no signs of failure. IMPRESSION: Marked cardiomegaly. Stable chest. POS: [facility]
--- NOTE | 2019-12-08 07:52 | RAD ---
RIGHT FOOT TWO VIEWS: History: Wounds to bilateral feet. Severe pain. FINDINGS: There are no signs of fracture. I do not see any bony evidence for osteomyelitis. Vascular calcificat ions are noted. Hindfoot region is not well visualized. IMPRESSION: No acute findings. No evidence for osteomyelitis. POS: [facility]
--- NOTE | 2019-12-08 07:53 | RAD ---
LEFT FOOT TWO VIEWS: History: Foot pain. Patient has severe wounds to bilateral feet. FINDINGS: There is some soft tissue swelling on the dorsum of the foot. There is no fracture. I do not apprecia te any plain film evidence for osteomyelitis. IMPRESSION: No acute bony changes. POS: [facility]
--- NOTE | 2019-12-12 17:29 | EKG ---
Test Reason : Blood Pressure : / mmHG Vent. Rate : 120 BPM Atrial Rate : 120 BPM P-R Int : 156 ms QRS Dur : 140 ms QT Int : 370 ms P-R-T Axes : 063 064 -71 degrees QTc Int : 522 ms Sinus tachycardia Right bundle branch block T wave abnormality, consider inferolateral ischemia Abnormal ECG Confirmed by YULIA MCKINLEY M.D. ([id number]), tape editor HARMAN WOOD ([id number]) on 12/12/2019 5:29:06 PM Referred By: Confirmed By:YULIA MCKINLEY M.D.
== END 2019-12-08 01:31 | disposition expired ==
LOC: ERS 19:56
DX: A41.9 Sepsis, unspecified organism (principal); R23.4 Changes in skin texture; R21 Rash and other nonspecific skin eruption; I10 Essential (primary) hypertension; Z99.2 Dependence on renal dialysis; Z79.899 Other long term (current) drug therapy
CPT/HCPCS: 31500; 36415; 36430; 71045; 80053; 83605; 85025; 86780; 86850; 86900; 86901; 87040; 93005; 96361; 96365; 96366; 96367; 96374; 96375; J0171; J0461; J0692; J2270; J2405; J3370; J7030; P9016